=== PATIENT | female | born 1990 | race Caucasian/White ===

== ENCOUNTER 2023-07-02 07:59 | Emergency (ER) | payer OTHER, SELFPAY ==
[2023-07-02 08:07] VITALS: BP 150/91; PULSE 70; RESP 16; TEMP 36.5; O2SAT 98; BMI 27.4
--- NOTE | 2023-07-02 08:13 | XR_ITS ---
The [address] [address] Patient Name: CHRISTOPHER RUDOLPH MRN: [id number] date: 1990 Sex: F Assigned Patient Location: ER Current Patient Location: ER Accession/Order Number: [id number] Exam Date: 07/02/2023 08:20 Report Date: 07/02/2023 08:55 At the request of: FRAN ARGUELLES Procedure: XR foot RT min 3V RIGHT FOOT THREE VIEWS: 07/02/2023 8:20 AM EDT Clinical Data: Foot pain Comparison: No previous. Correlation with right ankle series same date. No acute finding at the forefoot or midfoot. Chronic irregularity talar neck may be chronic. There is irregularity of the posterior malleolus with some step-off. XR/XR foot RT min 3V IMPRESSION: 1. No acute finding at the forefoot or midfoot. 2. Irregularity of the talar neck is probably chronic. 3. Irregularity of the posterior malleolus is age-indeterminate but could be acute to subacute. Clinical correlation is needed. Electronically authenticated by: RADHIKA CASTRO Date: 07/02/2023 08:55
--- NOTE | 2023-07-02 08:13 | XR_ITS ---
The [address] [address] Patient Name: CHRISTOPHER RUDOLPH MRN: [id number] date: 1990 Sex: F Assigned Patient Location: ER Current Patient Location: ED.MAIN Accession/Order Number: [id number] Exam Date: 07/02/2023 08:20 Report Date: 07/02/2023 08:52 At the request of: FRAN ARGUELLES Procedure: XR ankle RT min 3V RIGHT ANKLE THREE VIEWS: 07/02/2023 8:20 AM EDT Clinical Data: ankle pain Comparison: No previous Longitudinal irregularity at the posterior malleolus with mild step off. Mild irregularity talar neck is most likely chronic. No dislocation. Soft tissue prominence overlying the lateral greater than medial medial malleoli. XR/XR ankle RT min 3V IMPRESSION: 1. Age-indeterminate irregularity posterior malleolus. Clinical correlation is needed. 2. Soft tissue prominence overlying the lateral greater than medial malleoli requiring clinical correlation. 3. Some irregularity of the talar neck is most likely chronic. Electronically authenticated by: RADHIKA CASTRO Date: 07/02/2023 08:52
--- NOTE | 2023-07-02 08:28 | ED_ITS ---
HPI - Extremity Injury (Lower) General Chief Complaint: Extremity Injury, Lower Stated Complaint: ANKLE PAIN Time Seen by Provider: 07/02/23 08:13 Source: patient Mode of arrival: Wheelchair Limitations: no limitations History of Present Illness HPI Narrative: 32-year-old female presents for right a couple pain. She tripped and fell this morning about 6:45 AM. She points to the entire ankle to indicate area of pain. It's moderate and worse if she steps on it. No other injury was sustained. Related Data Previous Rx's Medication Instructions Recorded hydrocodone 5 mg-acetaminophen 325 1 tab PO Q6H PRN pain #20 tabs 07/02/23 mg tablet Allergies Allergy/AdvReac Type Severity Reaction Status Date / Time amoxicillin Allergy Severe Anaphylaxis Verified 07/02/23 08:06 Cephalosporins Allergy Severe Hives Verified 07/02/23 08:06 Penicillins Allergy Severe Anaphylaxis Verified 07/02/23 08:06 Review of Systems ROS Narrative A ten point review of systems is negative except as noted above. PFSH PFSH Social History Smoking status: Heavy tobacco smoker Exam Narrative Exam Narrative: Nurses note and vital signs reviewed and patient is not hypoxic. General: The patient appears well and in no apparent distress. Patient is resting comfortably on cart with her ankle and foot on an ice pack.. Skin: Warm, dry, no pallor noted. There is no rash noted. Head: Normocephalic, atraumatic Eye: Normal conjunctiva, no drainage Ears, Nose, Mouth, and Throat: oral mucosa is moist. Nares patent. Cardiovascular: Regular Rate and Rhythm Respiratory: Patient is in no distress, no accessory muscle use Back: non-tender GI: soft and nontender Musculoskeletal: she has swelling and some mild bruising in the right ankle area. Skin intact. Some tenderness on the proximal foot as well. Neurological: A&O, normal speech Psychiatric: Cooperative Constitutional Vital Signs, click to edit/add: Last Vital Signs Temp 97.7 F 07/02/23 08:07 Pulse 70 07/02/23 08:07 Resp 16 07/02/23 08:07 BP 150/91 H 07/02/23 08:07 Pulse Ox 98 07/02/23 08:07 O2 Del Method Room Air 07/02/23 08:07 Course Vital Signs Vital signs: Vital Signs Temperature 97.7 F 07/02/23 08:07 Pulse Rate 70 07/02/23 08:07 Respiratory Rate 16 07/02/23 08:07 Blood Pressure 150/91 H 07/02/23 08:07 Pulse Oximetry 98 07/02/23 08:07 Oxygen Delivery Method Room Air 07/02/23 08:07 Temperature 97.7 F 07/02/23 08:07 Pulse Rate 70 07/02/23 08:07 Respiratory Rate 16 07/02/23 08:07 Blood Pressure 150/91 H 07/02/23 08:07 Pulse Oximetry 98 07/02/23 08:07 Oxygen Delivery Method Room Air 07/02/23 08:07 MDM - Extremity Injury (Lower) MDM Narrative Medical decision making narrative: complex intra-articular fracture identified. Case discussed with , covering Dr. Sheehan. Follow-up is arranged for tomorrow or the next day. she was offered crutches but has been home and is prescribed [place]. Treatment diagnosis and follow-up were discussed with the patient and her . Imaging Data ankle x-ray, foot x-ray, CT ankle: Radiologist's impression: Procedure: XR ankle RT min 3V RIGHT ANKLE THREE VIEWS: 07/02/2023 8:20 AM EDT Clinical Data: ankle pain Comparison: No previous Longitudinal irregularity at the posterior malleolus with mild step off. Mild irregularity talar neck is most likely chronic. No dislocation. Soft tissue prominence overlying the lateral greater than medial medial malleoli. IMPRESSION: 1. Age-indeterminate irregularity posterior malleolus. Clinical correlation is needed. 2. Soft tissue prominence overlying the lateral greater than medial malleoli requiring clinical correlation. 3. Some irregularity of the talar neck is most likely chronic. Electronically authenticated by: RADHIKA CASTRO Date: 07/02/2023 08:52 Procedure: XR foot RT min 3V RIGHT FOOT THREE VIEWS: 07/02/2023 8:20 AM EDT Clinical Data: Foot pain Comparison: No previous. Correlation with right ankle series same date. No acute finding at the forefoot or midfoot. Chronic irregularity talar neck may be chronic. There is irregularity of the posterior malleolus with some step-off. IMPRESSION: 1. No acute finding at the forefoot or midfoot. 2. Irregularity of the talar neck is probably chronic. 3. Irregularity of the posterior malleolus is age-indeterminate but could be acute to subacute. Clinical correlation is needed. Electronically authenticated by: RADHIKA CASTRO Date: 07/02/2023 08:55 Procedure: CT ankle RT wo con EXAMINATION: CT ankle RT wo con HISTORY: abn x ray COMPARISON: Film correlation same day TECHNIQUE: Multi-planar CT images were created without IV contrast. Dose reduction techniques were achieved by using automated exposure control and/or adjustment of mA and/or kV according to patient size and/or use of iterative reconstruction technique. FINDINGS: BONES: Acute complex intra-articular fracture of the posterior malleolus with the largest fracture fragment measuring 1.5 x 1 cm. 5 mm avulsion fracture identified off the lateral aspect of the distal tibia coronal image 68. Avulsion fracture identified along the medial aspect of the medial talus. No dislocation. SOFT TISSUES: Moderate diffuse soft tissue swelling. EFFUSION: Ankle joint effusion/hemarthrosis OTHER: Negative. IMPRESSION: Complex intra-articular fracture of the posterior malleolus Avulsion fracture lateral aspect of the distal tibia Avulsion fractures medial talus Electronically authenticated by: SUSANA HILL Date: 07/02/2023 10:07 Discharge Plan Discharge Chief Complaint: Extremity Injury, Lower Clinical Impression: Ankle fracture Patient Disposition: Home, Self-Care Time of Disposition Decision: 11:38 Condition: Good Mode of Transportation: Private Vehicle Prescriptions / Home Meds: New hydrocodone-acetaminophen 5-325 mg tablet 1 tab PO Q6H PRN (Reason: pain) Qty: 20 0RF Instructions: Ankle Fracture (ED), Crutch Instructions (ED) Additional Instructions: follow-up with Dr. Sheehan, call today for an appointment Stand Alone Forms: Portal Instructions Referrals: Physician,Non-Staff, MD [Primary Care Provider] - 1 week
--- NOTE | 2023-07-02 08:59 | CT_ITS ---
The [address] [address] Patient Name: CHRISTOPHER RUDOLPH MRN: [id number] date: 1990 Sex: F Assigned Patient Location: ER Current Patient Location: ER Accession/Order Number: [id number] Exam Date: 07/02/2023 09:36 Report Date: 07/02/2023 10:07 At the request of: FRAN ARGUELLES Procedure: CT ankle RT wo con EXAMINATION: CT ankle RT wo con HISTORY: abn x ray COMPARISON: Film correlation same day TECHNIQUE: Multi-planar CT images were created without IV contrast. Dose reduction techniques were achieved by using automated exposure control and/or adjustment of mA and/or kV according to patient size and/or use of iterative reconstruction technique. FINDINGS: BONES: Acute complex intra-articular fracture of the posterior malleolus with the largest fracture fragment measuring 1.5 x 1 cm. 5 mm avulsion fracture identified off the lateral aspect of the distal tibia coronal image 68. Avulsion fracture identified along the medial aspect of the medial talus. No dislocation. SOFT TISSUES: Moderate diffuse soft tissue swelling. EFFUSION: Ankle joint effusion/hemarthrosis OTHER: Negative. CT/CT ankle RT wo con IMPRESSION: Complex intra-articular fracture of the posterior malleolus Avulsion fracture lateral aspect of the distal tibia Avulsion fractures medial talus Electronically authenticated by: SUSANA HILL Date: 07/02/2023 10:07
[2023-07-02 09:10] VITALS: BP 120/80; PULSE 70; RESP 18; O2SAT 99
[2023-07-02] MEDS: KETOROLAC TROMETHAMINE 60 MG/2 ML VIAL IM (09:25)
[2023-07-02 11:56] VITALS: BP 118/78; PULSE 82; RESP 18; O2SAT 100
== END 2023-07-02 11:58 | disposition home or self-care (01) ==
PROVIDERS: Emergency Provider Emergency Medicine
DX: S92.191A Other fracture of right talus, initial encounter for closed fracture (principal); S82.301A Unspecified fracture of lower end of right tibia, initial encounter for closed fracture; S82.891A Other fracture of right lower leg, initial encounter for closed fracture; W01.0XXA Fall on same level from slipping, tripping and stumbling without subsequent striking against object, initial encounter; F17.210 Nicotine dependence, cigarettes, uncomplicated
CPT/HCPCS: 73610; 73630; 73700; 96372; 99285

== ENCOUNTER 2023-07-04 15:32 | Outpatient (OUT) | payer OTHER, SELFPAY ==
--- NOTE | 2023-07-04 14:33 | ECG_ITS ---
The [facility] Test Date: 2023-07-04 Pat Name: CHRISTOPHER RUDOLPH Department: Room: - Gender: Female Filling Operator: : 1990 Requested By: NORTH RG Order Number: [id number] Reading MD: ROSIO MIGUEL Measurements Intervals [place] Rate: 61 P: 53 PA: 135 QRS: 69 QRSD: 89 T: 9 QT: 384 QTc: 387 Interpretive Statements SINUS RHYTHM NONSPECIFIC T-WAVE ABNORMALITY No previous ECG available for comparison Electronically Signed On 07-05-2023 7:11:47 EDT by ROSIO MIGUEL
--- NOTE | 2023-07-04 15:07 | XR_ITS ---
The [address] [address] Patient Name: CHRISTOPHER RUDOLPH MRN: [id number] date: 1990 Sex: F Assigned Patient Location: [facility] Current Patient Location: [facility] Accession/Order Number: [id number] Exam Date: 07/04/2023 15:45 Report Date: 07/04/2023 16:00 At the request of: NORTH RG Procedure: XR chest 2V EXAM: XR chest 2V HISTORY: Vaping COMPARISON: None. TECHNIQUE: Upright PA and lateral chest x-ray FINDINGS: The heart is not enlarged and the vasculature is not distended. No acute infiltrate, effusion or pneumothorax is identified. The osseous structures are grossly intact. XR/XR chest 2V IMPRESSION: No acute infiltrate or evidence of cardiac decompensation. Direct comparison with a previous study would be helpful in determining the chronicity of these findings. Electronically authenticated by: NORTH GALLOWAY Date: 07/04/2023 16:00
[2023-07-04 15:47] LABS: Basophils Percent Auto 0.5 % (0.2-2.0); Eosinophils Absolute Auto 0.2 10^3/uL (0.0-0.7); Eosinophils Percent Auto 4.1 % (0.9-7.0); Hematocrit 37.5 % (36.0-48.0); Hemoglobin 12.5 g/dL (12.0-16.0); Immature Granulocytes Abs Auto 0.02 10^3/uL (0.00-0.03); Immature Granulocytes Pct Auto 0.3 % (0.0-0.5); Lymphocytes Absolute Auto 1.6 10^3/uL (1.2-3.8); Lymphocytes Percent Auto 26.7 % (20.5-60.0); Mean Corpuscular HGB Conc 33.3 g/dL (29.9-35.2); Mean Corpuscular Hemoglobin 29.4 pg (26.7-34.0); Mean Corpuscular Volume 88.2 fL (81.0-99.0); Mean Platelet Volume 9.5 fL (9.5-13.5); Monocytes Absolute Auto 0.5 10^3/uL (0.3-0.8); Monocytes Percent Auto 9.1 % (1.7-12.0); Neutrophils Absolute Auto 3.5 10^3/uL (1.4-6.5); Neutrophils Percent Auto 59.3 % (43.0-75.0); Platelet Count 207 10^3/uL (150-450); Red Blood Count 4.25 10^6/uL (4.20-5.40); Red Cell Distribution Width 13.2 % (11.0-15.0); White Blood Count 5.9 10^3/uL (4.0-11.0)
[2023-07-04 16:17] LABS: Anion Gap 9.2; BUN Creatinine Ratio 12.1; Calcium 8.9 mg/dL (8.5-10.1); Carbon Dioxide 26.9 mmol/L (21.0-32.0); Chloride 104 mmol/L (98-107); Estimated GFR (African America >60 (>=60); Estimated GFR (Non-African Ame >60 (>=60); Glucose 84 mg/dL (74-106); Potassium 4.1 mmol/L (3.5-5.1); Sodium 136 mmol/L (136-145)
== END 2023-07-04 15:33 | disposition home or self-care (01) ==
LOC: PST 15:32
PROVIDERS: Visit Provider Podiatrist Foot & Ankle Surgery
DX: Z01.810 Encounter for preprocedural cardiovascular examination (principal); Z01.812 Encounter for preprocedural laboratory examination; S82.391A Other fracture of lower end of right tibia, initial encounter for closed fracture; S93.431A Sprain of tibiofibular ligament of right ankle, initial encounter
CPT/HCPCS: 36415; 71046; 80048; 85025; 93005

== ENCOUNTER 2023-07-16 09:29 | Day surgery (SDC) | payer OTHER, SELFPAY ==
[2023-07-04 15:03] VITALS: BP 126/86; PULSE 71; RESP 20; TEMP 36.5; O2SAT 98; BMI 27.5
[2023-07-16] VITALS (29 sets, daily range): BP systolic 101–140; BP diastolic 53–91; PULSE 59–88; RESP 10–35; TEMP 36.4; O2SAT 94–100; BMI 27.5
--- NOTE | 2023-07-16 | FL_ITS ---
[address] [address] Patient Name: CHRISTOPHER RUDOLPH MRN: [id number] date: 1990 Sex: F Assigned Patient Location: [facility] Current Patient Location: [facility] Accession/Order Number: [id number] Exam Date: 07/16/2023 13:20 Report Date: 07/17/2023 09:08 At the request of: NORTH RG Procedure: FL fluoroscopy <1hr NON-READ EXAM: FL fluoroscopy <1hr NON-READ HISTORY: TECHNIQUE: FINDINGS: Please see Operative Report. Electronically authenticated by: RADIOLOGIST NO Date: 07/17/2023 09:08
[2023-07-16 09:39] LABS: Basophils Percent Auto 0.6 % (0.2-2.0); Eosinophils Absolute Auto 0.1 10^3/uL (0.0-0.7); Eosinophils Percent Auto 3.3 % (0.9-7.0); Hemoglobin 13.9 g/dL (12.0-16.0); Immature Granulocytes Abs Auto 0.01 10^3/uL (0.00-0.03); Immature Granulocytes Pct Auto 0.3 % (0.0-0.5); Lymphocytes Absolute Auto 1.2 10^3/uL (1.2-3.8); Lymphocytes Percent Auto 34.2 % (20.5-60.0); Mean Corpuscular HGB Conc 33.9 g/dL (29.9-35.2); Mean Corpuscular Hemoglobin 29.6 pg (26.7-34.0); Mean Corpuscular Volume 87.2 fL (81.0-99.0); Mean Platelet Volume 9.1 fL (9.5-13.5); Monocytes Absolute Auto 0.3 10^3/uL (0.3-0.8); Monocytes Percent Auto 7.2 % (1.7-12.0); Neutrophils Percent Auto 54.4 % (43.0-75.0); Platelet Count 241 10^3/uL (150-450); Red Cell Distribution Width 12.7 % (11.0-15.0); White Blood Count 3.6 10^3/uL (4.0-11.0)
[2023-07-16 10:06] LABS: HCG Qualitative NEGATIVE (NEGATIVE)
[2023-07-16] MEDS: LACTATED RINGER'S SOLUTION 1,000 ML 50 ML IV (10:32)
[2023-07-16 10:33] LABS: Glucometer 92 mg/dL (74-106)
[2023-07-16] MEDS: CLINDAMYCIN PHOSPHATE/D5W 900 MG/50 ML PIGGYBACK 100 MG IV (12:14)
--- NOTE | 2023-07-16 14:40 | P.ORON_ITS ---
Brief Operative Note Date of procedure: 07/16/23 Pre-op diagnosis: right posterior malleolus fracture with possible ligamentous injury Post-op diagnosis: other (right posterior malleolus fracture, closed, intra- articular and comminuted) Procedure: PROCEDURES PERFORMED: open reduction and internal fixation of posterior malleolus fracture, application of short leg splint and intraoperative stress examination under fluoroscopy, right ankle INTRAOPERATIVE FINDINGS: skin wrinkles were intact and minimal swelling noted prior to incision. Posterior malleolus fracture with intra-articular extension and comminution. Bone quality within normal limits. Syndesmosis and medial/lateral collateral ankle ligaments all intact and stable PROCEDURE IN DETAIL: Patient was identified in preoperative holding at which time correct side and site were marked and confirmed. Preoperative antibiotics were started and regional anesthesia was administered by the anesthesia team. The patient was brought to the operating suite and general anesthesia was administered. Thigh tourniquet was applied. The patient was then flipped onto the OR table in a well-padded prone position. The operative extremity was then prepped and draped in a usual sterile fashion. Formal timeout was performed and the operative extremity was exsanguinated and tourniquet inflated. A longitudinal incision was placed over the posterior lateral ankle between the tibia and fibula. Sharp and blunt dissection was performed meticulously and the sural nerve and associated venous structures were identified and carefully freed then retracted with vessel loops. Small tributaries in the direct field and blee ders were coagulated. Deeper dissection was performed and deep fascia was incised. The peroneus brevis and flexor hallucis longus muscles were identified And dissection continued deep between this muscular interval. Hematoma was evacuated and flushed with copious amounts of sterile saline. The periosteum was carefully reflected to expose the fracture lines on the fibula and posterior malleolus. All impingement tissue and hematoma was removed from the fractures. The surgical site was irrigated several times with copious saline. Then manual reduction and traction of the ankle was performed. and arthroscopic camera was placed in the tibiotalar joint to ensure all loose bodies were removed and articular fracture was reduced. The posterior malleolus fracture were temporarily fixated with K-wires. an anatomic posterior malleolus fracture plate was then temporarily pinned in place. Then screw holes were drilled under fluoroscopy to ensure extra-articular placement. locking and nonlocking screws were then placed accordingly. Temporary fixation was then removed. Under live fluoroscopy the syndesmosis was then stressed and noted to be stable. Then there is and valgus stress as well as anterior drawer were tested all were notably stable and within normal limits. Surgical site was irrigated with copious sterile saline. the incision was then closed in layers. Tourniquet was dropped after deep fascia was closed in a prompt hyperemic response was noted. Hemostasis was controlled with a temporary pressure dressing. Multiple layer closure was then performed. A dry sterile dressing consisting of Xeroform on the incisions followed by 4 x 4 gauze, ABDs, and Kerlix were applied. Multiple layers of cast padding were then applied to ensure all bony prominences were well-padded. A plaster posterior splint was then applied which was held in place by Barney wraps. Capillary refill time to all digits was evaluated and had appropriate response. POST-OPERATIVE PLAN: Discharge home under family's care Post op instructions provided verbally and written prescription(s) were placed in chart [facility] operative foot/ankle x3 wks Follow-up in 1 week Implants: Medline 3.5 mm posterior malleolus fracture plate Anesthesia: regional and General-ET Surgeon: Isaac Sheehan Volunteer Fire Fighter: Bi Jalloh Estimated blood loss (mL): 10 Pathology: none sent Condition: stable Disposition: PACU Preoperative Details Reason for procedure: patient is a healthy 32-year-old female who sustained right posterior malleolus were fracture on 07/02/23 secondary to slipping on wet grass. She went to the emergency department and x-rays and CT scan were obtained. Of note CT scan showed isolated comminuted posterior malleolus fracture. She was splinted and told to be nonweightbearing. She followed up with me the day after at which time her splint was changed and compartments were soft and compressible with no pain out of proportion. Surgery was delayed for greater than ten days to allow her skin to recover. Given the isolated fracture of the posterior malleolus there were strong suspicion for ligamentous involvement. Given the intra-articular and comminuted fracture discussed risks and benefits of surgical versus nonsurgical treatment. Patient wished to proceed with open reduction and internal fixation with ligament repairs as needed.
--- NOTE | 2023-07-16 15:14 | XR_ITS ---
The [address] [address] Patient Name: CHRISTOPHER RUDOLPH MRN: [id number] date: 1990 Sex: F Assigned Patient Location: [facility] Current Patient Location: Accession/Order Number: [id number] Exam Date: 07/16/2023 16:42 Report Date: 07/17/2023 07:27 At the request of: BARBY HUGHES Procedure: XR ankle RT min 3V PROCEDURE: XR ankle RT min 3V COMPARISON: None. HISTORY: postop xr pacu FINDINGS: BONES:Interval open reduction internal fixation of a posterior malleolus fracture with a plate and screws. Anatomic alignment is demonstrated. No dislocation. SOFT TISSUES:Postprocedural soft tissue swelling and subcutaneous emphysema EFFUSION:None visible. OTHER: Negative. XR/XR ankle RT min 3V IMPRESSION: Interval reduction and internal fixation of a posterior malleolus fracture Electronically authenticated by: SUSANA HILL Date: 07/17/2023 07:27
[2023-07-16] MEDS: HYDROMORPHONE HCL 0.5 MG/0.5 ML SYRINGE IV ×2 (15:49→15:59)
[2023-07-16 15:51] LABS: Glucometer 119 mg/dL (74-106)
[2023-07-16] MEDS: OXYCODONE HCL/ACETAMINOPHEN 5MG/325MG 1 TAB PO (16:44)
--- NOTE | 2023-07-16 17:15 | PC.NURSE ---
1620 07/16/23 Patient was placed in a prone position after Dr. Leo reviewed the procedure of the nerve block. Patient was being monitored in the PACU Phase One at this time with a one on one nurse (proposal manager writer). Patient was given a local at the site and then the bedside ultrasound was used to locate area by the Dr. The nerve stimulator was placed and used and performed block without incidence. Patient was returned to supine position post block. She tolerated it well. Vitals remained within normal limits throughout. Block took 10 minutes in length to complete.
== END 2023-07-16 18:00 | disposition home or self-care (01) ==
LOC: SURGOUT 09:30
PROVIDERS: Family Provider Anesthesiology; Visit Provider Podiatrist Foot & Ankle Surgery
PROC: (CPT 27769; principal; 2023-07-16 10:40)
DX: S82.391A Other fracture of lower end of right tibia, initial encounter for closed fracture (principal); S93.431A Sprain of tibiofibular ligament of right ankle, initial encounter; F17.290 Nicotine dependence, other tobacco product, uncomplicated; W18.39XA Other fall on same level, initial encounter; S93.421A Sprain of deltoid ligament of right ankle, initial encounter; S93.491A Sprain of other ligament of right ankle, initial encounter
CPT/HCPCS: 27769; 36415; 64445; 73610; 76000; 76942; 82948; 84703; 85025; C1713; J1170; J2704

== ENCOUNTER 2023-08-09 11:32 | Outpatient (OUT) | payer OTHER, SELFPAY ==
--- NOTE | 2023-08-09 | XR_ITS ---
The [address] [address] Patient Name: CHRISTOPHER RUDOLPH MRN: [id number] date: 1990 Sex: F Assigned Patient Location: [facility] Current Patient Location: Accession/Order Number: [id number] Exam Date: 08/09/2023 11:25 Report Date: 08/10/2023 09:37 At the request of: NORTH RG Procedure: XR ankle RT min 3V EXAM: XR ankle RT min 3V HISTORY: PSOT OP VISIT RIGTH ANKLE SX COMPARISON: 07/16/2023. TECHNIQUE: Routine views of the XR ankle RT min 3V FINDINGS/ XR/XR ankle RT min 3V IMPRESSION: 1. Plate and screw fixation of the posterior malleolus. Alignment is anatomic without evidence for hardware complication. Minimal residual vertically oriented fracture lucency is noted. No new fractures identified. 2. Unremarkable soft tissues. 3. Normal joint spacing. Electronically authenticated by: FRANCISCO DUNN Date: 08/10/2023 09:37
== END 2023-08-09 11:33 | disposition home or self-care (01) ==
LOC: RAD 11:32
PROVIDERS: Visit Provider Podiatrist Foot & Ankle Surgery
DX: S93.491A Sprain of other ligament of right ankle, initial encounter (principal)
CPT/HCPCS: 73610

== ENCOUNTER 2023-08-30 11:00 | Outpatient (OUT) | payer OTHER, SELFPAY ==
--- NOTE | 2023-08-30 11:16 | XR_ITS ---
The [address] [address] Patient Name: CHRISTOPHER RUDOLPH MRN: [id number] date: 1990 Sex: F Assigned Patient Location: [facility] Current Patient Location: [facility] Accession/Order Number: [id number] Exam Date: 08/30/2023 11:07 Report Date: 08/30/2023 22:14 At the request of: GERALD MELENDREZ Procedure: XR ankle RT min 3V EXAM: XR ankle RT min 3V HISTORY: RIGHT ANKLE PAIN COMPARISON: Right ankle radiographs 08/09/2023 TECHNIQUE: 3 views right ankle FINDINGS: Open reduction and internal fixation of the distal tibia without hardware complication. A fracture lucency persists. Tibiotalar joint is congruent without large osteochondral defect. No joint effusion. XR/XR ankle RT min 3V IMPRESSION: Status post open reduction internal fixation of the distal tibia without hardware complication. Electronically authenticated by: RIGO AGUILAR Date: 08/30/2023 22:14
== END 2023-08-30 11:01 | disposition home or self-care (01) ==
LOC: RAD 11:00
PROVIDERS: Visit Provider Physician Assistant
DX: S82.391A Other fracture of lower end of right tibia, initial encounter for closed fracture (principal)
CPT/HCPCS: 73610

== ENCOUNTER 2023-09-18 15:03 | Outpatient (OUT) | payer OTHER, SELFPAY ==
--- NOTE | 2023-09-18 | XR_ITS ---
The [address] [address] Patient Name: CHRISTOPHER RUDOLPH MRN: [id number] date: 1990 Sex: F Assigned Patient Location: [facility] Current Patient Location: Accession/Order Number: [id number] Exam Date: 09/18/2023 15:14 Report Date: 09/19/2023 07:23 At the request of: NORTH RG Procedure: XR ankle RT min 3V PROCEDURE: XR ankle RT min 3V COMPARISON: 08/30/2023 HISTORY: RIGHT ANKLE PAIN FINDINGS: BONES:Again demonstrated is internal fixation of the posterior malleolus fracture with a posterior plate and screws. The most cranial of the screws extends beyond the anterior tibial cortical margin, unchanged. No mechanical failure. No new fracture or dislocation. SOFT TISSUES:Negative. No visible soft tissue swelling. EFFUSION:None visible. OTHER: Negative. XR/XR ankle RT min 3V IMPRESSION: Interval internal fixation posterior malleolus with no mechanical failure Electronically authenticated by: SUSANA HILL Date: 09/19/2023 07:23
== END 2023-09-18 15:04 | disposition home or self-care (01) ==
LOC: RAD 15:03
PROVIDERS: Visit Provider Podiatrist Foot & Ankle Surgery
DX: S82.391A Other fracture of lower end of right tibia, initial encounter for closed fracture (principal)
CPT/HCPCS: 73610

== ENCOUNTER 2023-10-26 09:54 | Outpatient (OUT) | payer OTHER, SELFPAY ==
--- NOTE | 2023-10-26 | XR_ITS ---
The [address] [address] Patient Name: CHRISTOPHER RUDOLPH MRN: [id number] date: 1990 Sex: F Assigned Patient Location: [facility] Current Patient Location: [facility] Accession/Order Number: [id number] Exam Date: 10/26/2023 10:03 Report Date: 10/26/2023 11:43 At the request of: NORTH RG Procedure: XR ankle RT min 3V PROCEDURE: XR ankle RT min 3V COMPARISON: 09/18/2023 HISTORY: RIGTH ANKLE F/U IMAGING FINDINGS: BONES:Stable reduction internal fixation of a posterior malleolus fracture with a plate and screws. No acute fracture, dislocation or mechanical failure. Interval development of permeative pattern of the bones SOFT TISSUES:Negative. No visible soft tissue swelling. EFFUSION:None visible. OTHER: Negative. XR/XR ankle RT min 3V IMPRESSION: Stable open reduction internal fixation of the posterior malleolus fracture Interval development of osteopenia Electronically authenticated by: SUSANA HILL Date: 10/26/2023 11:43
--- OUTSIDE RECORDS SUMMARY | 2023-10-26 09:57 | XMS_ITS | CCD ---
Author Name Unknown Address [address] [place] [address] Organization [facility] Care Team Providers Care Tie Maker Name Role Phone ADITYA, DR OCHOA Admitting Unavailable ADIYTA, DR OCHOA Attending Unavailable [facility] Primary Care Unavailable ADITYA, DR OCHOA Consulting Unavailable ADITYA, DR OCHOA Admitting Unavailable ADITYA, DR OCHOA Attending Unavailable [facility] Primary Care Unavailable LA LAWRENCE Consulting Unavailable ADITYA, DR OCHOA Admitting Unavailable ADITYA, DR OCHOA Attending Unavailable [facility] Primary Care Unavailable ADITYA, DR OCHOA Consulting Unavailable LISA VALLES Consulting Unavailable IBIS PRICE Consulting Unava ilable ADITYA, DR OCHOA Admitting Unavailable ADITYA, DR OCHOA Attending Unavailable AYAN, BETTYE R Primary Care Unavailable ADITYA, DR OCHOA Admitting Unavailable ADITYA, DR OCHOA Attending Unavailable AYAN, BETTYE R Primary Care Unavailable ADITYA, DR OCHOA Consulting Unavailable ADITYA, DR OCHOA Admitting Unavailable ADITYA, DR OCHOA Attending Un[facility]available ADITYA, DR OCHOA Consulting Unavailable ADITYA, DR OCHOA Admitting Unavailable ADITYA, DR OCHOA Attending Unavailable [facility]available SERGIO, DR SUSANA Xie Consulting Unavailable ADITYA, DR OCHOA Consulting Unavailable Gini Fernandez Unavailable NORTH RG Referring Unavailable ELIAS SHEFFIELD Primary Care Unavailable NOR[facility] RG Referring Unavailable ELIAS SHEFFIELD Primary Care Unavailable Allergies Allergy Classification Reported Allergen(s) Allergy Type Date of Onset Reaction(s) Facility (3 sources) Penicillins; Translations: [PENICILLINS] Drug allergy (disorder) 10-15-18 92 [facility] Repository (2 sources) Amoxicillin Drug Allergy anaphylaxis [facility] Other (2 sources) Penicillin V Drug Allergy anaphylaxis [facility] Other (1 source) Cephalosporins (Antibiotic); Translations: [CEPHALOSPORINS] Propensity to adverse reactions to drug (disorder) 12-10-19 [facility] Repository Medications Current Medications Medication Drug Class(es) Dates Sig (Normalized) Sig (Original) [id number] 200 actuat albuterol 0.09 mg/actuat metered dose inhaler (3 sources) beta2-Adrenergic Agonist Start: 12-20-2022 take 2 puff(s) by inhalation four times daily as needed Albuterol Sulfate HFA 108 (90 Base) MCG/ACT 2 puffs Inhalation qid prn Dec, Active benzonatate 200 mg oral capsule (3 sources) Non-narcotic Antitussive Start: 01-03-2023 take 1 capsule by mouth every eight hours Benzonatate 200 MG 1 capsule Orally Three times a day Dec, Active Start: 12-20-2022 take 1 capsule by mo ut every eight hours Tessalon Perles 100 MG 1 capsule as needed Orally Three times a day for 10 day(s) Dec, Not-Taking doxycycline hyclate 100 mg oral capsule (1 source) Tetracycline-class Drug Start: 01-03-2023 take 1 capsule by mouth every twelve hours Doxycycline Hyclate 100 MG 1 capsule Orally Twice a day for 10 Dec, Active predniSONE 20 mg oral tablet (3 sources) Start: 12-20-2022 take 1 tablet by mouth every twelve hours predniSONE 20 MG 1 tablet Orally bid for 5 day(s) Dec, Active Completed/Discontinued Medications Medication Drug Class(es) Dates Sig (Normalized) Sig (Original) azithromycin 250 mg oral tablet (2 sources) Macrolide Antimicrobial Start: 12-20-2022 Azithromycin 250 MG 2 tablet on the first day, then 1 tablet daily for 4 days Orally Once a day for 5 day(s) Dec, Not-Taking triamcinolone acetonide 40 mg/ml injectable suspension (1 source) Corticosteroid Start: 01-03-2023 Kenalog-40 Dec, 40 mg Problems Active Problems Problem Classification Problem Date Documented Da te Episodic/Chronic Chronic obstructive pulmonary disease and bronchiectasis (2 sources) Bronchitis, not specified as acute or chronic Episodic Contraceptive and procreative management (5 sources) Encounter for sterilization; Translations: [ENCOUNTER FOR STERILIZATION] Onset: 08-13-2022 Episodic Headache; including migraine (2 sources) Refractory migraine with aura; Translations: [Migraine with aura, intractable, with status migrainosus] Chronic Menstrual disorders (6 sources) Excessive and frequent menstruation with regular cycle; Translations: [Irregular menstruation, unspecified] Onset: 07-17-2022 Chronic Other female genital disorders (1 source) Other specified conditions associated with female genital organs and menstrual cycle; Translations: [OTH SPEC COND FE GEN ORG MENST CYCL] Onset: 08-28-2022 Episodic Other gastrointestinal disorders (2 sources) Diarrhea; Translations: [Diarrhea] Episodic Other gastrointestinal disorders (2 sources) Constipation; Translations: [Constipation] Episodic Other upper respiratory disease (2 sources) Hypertrophy of nasal turbinates; Translations: [Hypertrophy of nasal turbinates] Episodic Other upper respiratory infections (3 sources) Acute sinusitis; Translations: [Sinusitis acute] Episodic Sprains and strains (2 sources) Sprain of wrist; Translations: [Wrist strain] Episodic Superficial injury; contusion (2 sources) Contusion of hand; Translations: [Contusion, hand] Episodic Unclassified (1 source) CONTACT W/AND (SUSP) EXPOS COVID-19; Translations: [CONTACT W/AND (SUSP) EXPOS COVID-19] Onset: 08-18-2022 Past or Other Problems Problem Classification Problem Date Documented Date Episodic/Chronic Immunizations and screening for infectious disease (1 source) Encounter for screening for human papillomavirus (HPV); Translations: [ENC SCREENING HUMAN PAPILLOMAVIRUS] Onset: 06-08-2022 Episodic Other screening for suspected conditions (not mental disorders or infectious disease) (4 sources) Encounter for screening for malignant neoplasm of cervix; Translations: [ENC SCREENING MALIG NEOPLASM CERV] Onset: 06-06-2022 Episodic Results Test Name Value Interpretation Reference Range Facility [facility] 12-20-2022 S. pyogenes Org specific cx Ql (Throat) Negative [facility] Other [facility] Other CBC AUTO DIFFon 08-18-2022 BASO # 0.0 103/ul Normal 0.0-0.1 [facility] Comment on above: Performed By: #### C BC #### [facility] [address] [place] [address] Dr. Mary Alice Maxwell Basophils/100 WBC (Bld) 0.3 % Normal 0.2-2.0 [facility] Comment on above: Performed By: #### C BC #### [facility] [address] [address] [address] Mary Alice Maxwell EO # 0.1 103/ul Normal 0.0-0.7 [facility] Comment on above: Performed By: #### C BC #### [facility] [address] [place] [address] Dr. Mary Alice Maxwell Eosinophils/100 WBC (Bld) 1.3 % Normal 0.9-7.0 [facility] Comment on above: Performed By: #### C BC #### [facility] [address] [place] [address] Dr. Mary Alice Maxwell Erythrocyte distribution width (RBC) [Ratio] 12.9 % Normal 11.0-15.0 [facility] Comment on above: Performed By: #### C BC #### [facility] [address] [place] [address] Dr. Mary Alice Maxwell Hematocrit (Bld) [Volume fraction] 41.6 % Normal 36.0-48.0 [facility] Comment on above: Performed By: #### C BC #### [facility] [address] [place] [address] Dr. Mary Alice Maxwell Hemoglobin (Bld) [Mass/Vol] 13.8 g/dL Normal 12.0-16.0 [facility] Comment on above: Performed By: #### C BC #### [facility] [address] [place] [address] Dr. Mary Alice Maxwell IG # 0.01 10e3/ul Normal 0.00-0.03 [facility] Comment on above: Performed By: #### C BC #### [facility] [address] [place] [address] Dr. Mary Alice Maxwell IG % 0.3 % Normal 0.0-0.5 [facility] Comment on above: Performed By: #### C BC #### [facility] [address] [place] [address] Dr. Mary Alice Maxwell LYMPH # 1.2 103/ul Normal 1.2-3.8 [facility] Comment on above: Performed By: #### C BC #### [facility] [address] [place] [address] Dr. Mary Alice Maxwell Lymphocytes/100 WBC (Bld) 29.3 % Normal 20.5-60.0 [facility] Comment on above: Performed By: #### C BC #### [facility] [address] [place] [address] Dr. Mary Alice Maxwell MANUAL DIFF REQ NO Normal [facility] Comment on above: Performed By: #### C BC #### [facility] [address] [place] [address] Dr. Mary Alice Maxwell MCH (RBC) [Entitic mass] 28.5 pg Normal 26.7-34.0 [facility] Comment on above: Performed By: #### C BC #### [facility] [address] [place] [address] Dr. Mary Alice Maxwell MCHC (RBC) [Mass/Vol] 33.2 g/dL Normal 29.9-35.2 [facility] Comment on above: Performed By: #### C BC #### [facility] [address] [place] [address] Dr. Mary Alice Maxwell MCV (RBC) [Entitic vol] 85.8 fL Normal 81.0-99.0 [facility] Comment on above: Performed By: #### C BC #### [facility] [address] [place] [address] Dr. Mary Alice Maxwell MONO # 0.3 103/ul Normal 0.3-0.8 [facility] Comment on above: Performed By: #### C BC #### [facility] [address] [place] [address] Dr. Mary Alice Maxwell Monocytes/100 WBC (Bld) 8.0 % Normal 1.7-12.0 [facility] Comment on above: Performed By: #### C BC #### [facility] [address] [place] [address] Dr. Mary Alice Maxwell NEUT # 2.4 103/ul Normal 1.4-6.5 [facility] Comment on above: Performed By: #### C BC #### [facility] [address] [place] [address] Dr. Mary Alice Maxwell Neutrophils/100 WBC (Bld) 60.8 % Normal 43.0-75.0 [facility] Comment on above: Performed By: #### C BC #### [facility] [address] [place] [address] Dr. Mary Alice Maxwell Platelet mean volume (Bld) [Entitic vol] 9.0 fL Critically low 9.5-13.5 [facility] Comment on above: Performed By: #### C BC #### [facility] [address] [place] [address] Dr. Mary Alice Maxwell PLT 227 103/ul Normal 150-450 [facility] Comment on above: Performed By: #### C BC #### [facility] [address] [place] [address] Dr. Mary Alice Maxwell RBC 4.85 106/ul Normal 4.20-5.40 [facility] Comment on above: Performed By: #### C BC #### [facility] [address] [place] [address] Dr. Mary Alice Maxwell WBC 4.0 103/ul Normal 4.0-11.0 [facility] Comment on above: Performed By: #### C BC #### [facility] [address] [place] [address] Dr. Mary Alice Maxwell PREG HCG QUALon 08-18-2022 , QUAL Negative Normal NEGATIVE [facility] Comment on above: Performed By: #### P REG #### [facility] [address] [place] [address] Dr. Mary Alice Maxwell Covid-19 PCR (CVDTBH)on SARS-CoV-2 (COVID-19) RNA MARY+probe Ql (Unsp spec) Not detected Normal NOT DETECTED [facility] Comment on above: Result Comment: This test is not yet approved or cleared by the [place] FDA. When there are no FDA-approved or cleared tests available, and other criteria are met, FDA can make tests available under an emergency access mechanism called an Emergency Use Authorization (EUA). The EUA for this test is supported by the [employer] of Health and Human Service's (HHS's) declaration that circumstances exist to justify the emergency use of in vitro diagnostics for the detection and/or diagnosis of the virus that causes COVID-19. This EUA will remain in effect (meaning this test can be used) for the duration of the COVID-19 declaration justifying emergency of IVDs, unless it is terminated or revoked by FDA (after which the test may no longer be used). When diagnostic testing is negative, the possibility of a false negative should be considered in the context of a patient's recent exposures and the presence of clinical signs and symptoms consistent with SARS-CoV-2. Performed By: #### [facility] #### [facility] [address] [place] [address] Dr. Mary Alice Maxwell US PELVIS AND TRANSVAGon US PELVIS AND TRANSVAG EXAMINATION: US PELVIS AND TRANSVAG HISTORY: Irregular periods COMPARISON: No relevant comparison available. FINDINGS: Transabdominal and transvaginal images The uterus is normal in size, contour and myometrial echotexture measuring 8.6 x 4.0 x 5.1 cm. Anteverted. No focal myometrial mass. The endometrium measures 4.7 mm, normal. The right ovary is normal in appearance measuring 2.5 x 2.5 1.5 cm. Normal color Doppler flow. The left ovary measures 1.5 x 2.1 x 1.4 cm. Normal color flow. No free fluid IMPRESSION: No acute abnormality Electronically authenticated by: SUSANA HILL Date: 2022-07-17 16:10 Normal [facility] CBC AUTO DIFFon 07-15-2022 BASO # 0.0 103/ul Normal 0.0-0.1 [facility] Comment on above: Performed By: #### C BC ####[facility] [address] [id number]. Mary Alice Maxwell Basophils/100 WBC (Bld) 0.2 % Normal 0.2-2.0 [facility] Comment on above: Performed By: #### C BC ####[facility] [address] [place], [place] [address]Dr. Mary Alice Maxwell EO # 0.0 103/ul Normal 0.0-0.7 [facility] Comment on above: Performed By: #### C BC ####[facility] [address] [place], [place] [address]Dr. Mary Alice Maxwell Eosinophils/100 WBC (Bld) 0.4 % Critically low 0.9-7.0 [facility] Comment on above: Performed By: #### C BC ####[facility] [address] [place], [place] [address]Dr. Mary Alice Maxwell Erythrocyte distribution width (RBC) [Ratio] 12.5 % Normal 11.0-15.0 [facility] Comment on above: Performed By: #### C BC ####[facility] [address] [place], [place] [address]Dr. Mary Alice Maxwell Hematocrit (Bld) [Volume fraction] 38.0 % Normal 36.0-48.0 [facility] Comment on above: Performed By: #### C BC ####[facility] [address] [place], [place] [address]Dr. Mary Alice Maxwell Hemoglobin (Bld) [Mass/Vol] 12.5 g/dL Normal 12.0-16.0 [facility] Comment on above: Performed By: #### C BC ####[facility] [address] [place], [place] [address]Dr. Mary Alice Maxwell IG # 0.01 10e3/ul Normal 0.00-0.03 [facility] Comment on above: Performed By: #### C BC ####[facility] [address] [place], [place] [address]Dr. Mary Alice Maxwell IG % 0.2 % Normal 0.0-0.5 [facility] Comment on above: Performed By: #### C BC ####[facility] [address] [id number]. Mary Alice Maxwell LYMPH # 1.2 103/ul Normal 1.2-3.8 [facility] Comment on above: Performed By: #### C BC ####[facility] [address] [id number]. Mary Alice Maxwell Lymphocytes/100 WBC (Bld) 23.9 % Normal 20.5-60.0 [facility] Comment on above: Performed By: #### C BC ####[facility] [address] [address]Dr. Mary Alice Maxwell MANUAL DIFF REQ NO Normal [facility] Comment on above: Performed By: #### C BC ####[facility] [address] [address]Dr. Mary Alice Maxwell MCH (RBC) [Entitic mass] 28.8 pg Normal 26.7-34.0 [facility] Comment on above: Performed By: #### C BC ####[facility] [address] [id number]. Mary Alice Maxwell MCHC (RBC) [Mass/Vol] 32.9 g/dL Normal 29.9-35.2 [facility] Comment on above: Performed By: #### C BC ####[facility] [address] [id number]. Mary Alice Maxwell MCV (RBC) [Entitic vol] 87.6 fL Normal 81.0-99.0 [facility] Comment on above: Performed By: #### C BC ####[facility] [address] [id number]. Mary Alice Maxwell MONO # 0.3 103/ul Normal 0.3-0.8 [facility] Comment on above: Performed By: #### C BC ####[facility] [address] [id number]. Mary Alice Maxwell Monocytes/100 WBC (Bld) 7.0 % Normal 1.7-12.0 [facility] Comment on above: Performed By: #### C BC ####[facility] [address] [id number]. Jackiesanchez Hans NEUT # 3.3 103/ul Normal 1.4-6.5 [facility] Comment on above: Performed By: #### C BC ####[facility] [address] [id number]. Mary Alice Maxwell Neutrophils/100 WBC (Bld) 68.3 % Normal 43.0-75.0 [facility] Comment on above: Performed By: #### C BC ####[facility] [address] [id number] Maxwell Platelet mean volume (Bld) [Entitic vol] 9.5 fL Normal 9.5-13.5 [facility] Comment on above: Performed By: #### C BC ####[facility] [address] [address]Dr. Mary Alice Maxwell PLT 227 103/ul Normal 150-450 [facility] Comment on above: Performed By: #### C BC ####[facility] [address] [id number] Maxwell RBC 4.34 106/ul Normal 4.20-5.40 [facility] Comment on above: Performed By: #### C BC ####[facility] [address] [id number] Maxwell WBC 4.9 103/ul Normal 4.0-11.0 [facility] Comment on above: Performed By: #### C BC ####[facility] [address] [id number] Maxwell PREG QUANT HCGon 07-15-2022 HCG QUANT 1 mIU/mL Normal [facility] Comment on above: Performed By: #### T SH, PREGQNT #### [facility] [address] [place], [place] [address] Dr. Mary Alice Maxwell HCG RANGE SEE BELOW Normal [facility] Comment on above: Result Comment: 5-50 0.2-1 WEEK 50-500 1-2 WEEKS 100-5,000 2-3 WEEKS 500-10,000 3-4 WEEKS 1,000-50,000 4-5 WEEKS 10,000-100,000 5-6 WEEKS 15,000-200,000 6-8 WEEKS 10,000-100,000 2-3 MONTHS Performed By: #### T SH, PREGQNT #### [facility] [address] [place] [address] Dr. Mary Alice Maxwell PROTIMEon 07-15-2022 INR Coag (PPP) [Relative time] 0.94 {INR} Normal [facility] Comment on above: Performed By: #### P TT, PT #### [facility] [address] [place] [address] Dr. Mary Alice Maxwell INR GUIDELINES SEE BELOW Normal [facility] Comment on above: Result Comment: NICKOLAS RED INR: 2.0 - 3.0 CONDITIONS NOT LISTED BELOW 2.5 - 3.5 FOR PROSTHETIC HEART VALVE REPLACEMENT 2.5 - 3.5 RECURRENT THROMBOSIS Performed By: #### P TT, PT #### [facility] [address] [place] [address] Dr. Mary Alice Maxwell PT Coag (PPP) [Time] 10.2 s Normal 9.0-11.6 [facility] Comment on above: Performed By: #### P TT, PT #### [facility] [address] [place] [address] Dr. Mary Alice Maxwell PTTon 07-15-2022 aPTT Coag (Bld) [Time] 29.0 s Normal 22.3-36.2 [facility] Comment on above: Performed By: #### P TT, PT #### [facility] [address] [place] [address] Dr. Mary Alice Maxwell TSHon 07-15-2022 TSH 0.751 uIU/mL Normal 0.358-3.740 [facility] Comment on above: Performed By: #### T SH, PREGQNT #### [facility] [address] [place] [address] Dr. Mary Alice Maxwell PAP ACOG PANEL 2: 30 to 65on 06-12-2022 . . Normal [facility] Comment on above: Result Comment: Perf ormed at: WB Performed By: #### [id number] #### [facility] [address] [address] [address] Mary Alice Maxwell Age Gdln ACOG Testing 30-65 [facility] Comment on above: Performed By: #### [id number] #### [facility] [address] [address] [address] Mary Alice Maxwell DIAGNOSIS: Comment Normal [facility] Comment on above: Result Comment: NEGA TIVE FOR INTRAEPITHELIAL LESION OR MALIGNANCY. Performed at: WB Performed By: #### [id number] #### [facility] [address] [place] [address] Dr. Mary Alice Maxwell HPV Aptima Negative Normal Negative [facility] Comment on above: Result Comment: This nucleic acid amplification test detects fourteen high-risk HPV types (16,18,31,33,35,39,45,51,52,56,58,59,66,68) without differentiation. Performed at: =G Performed By: #### [id number] #### [facility] [address] [place] [address] Dr. Mary Alice Maxwell Methodology: Comment [facility] Comment on above: Result Comment: This liquid based ThinPrep(R) pap test was screened with the use of an image guided system. Performed at: WB Performed By: #### [id number] #### [facility] [address] [place] [address] Dr. Mary Alice Maxwell Note: Comment [facility] Comment on above: Result Comment: The Pap smear is a screening test designed to aid in the detection of premalignant and malignant conditions of the uterine cervix. It is not a diagnostic procedure and should not be used as the sole means of detecting cervical cancer. Both false-positive and false-negative reports do occur. . Performed at: WB Performed By: #### [id number] #### [facility] [address] [place] [address] Dr. Mary Alice Maxwell Performed by: Comment [facility] Comment on above: Result Comment: Valerio Washington Mailer (ASCP) Performed at: WB Performed By: #### [id number] #### [facility] [address] [place], [place] [address] Dr. Mary Alice Maxwell Specimen adequacy: Comment Normal [facility] Comment on above: Result Comment: Sati sfactory for evaluation. Endocervical and/or squamous metaplastic cells (endocervical component) are present. Performed at: WB Performed By: #### [id number] #### [facility] [facility] [address] [address] [address] Mary Alice Maxwell Vital Signs Date Time Vital Sign Value Performing Clinician Facility 01-03-2023 10:25-0400 Body height 157.48 cm Ginileesa Fernandez Other [facility] Other 01-03-2023 10:25-0400 Body mass index (BMI) [Ratio] 30.21 kg/m2 Gini Crooksmond Other [facility] Other 01-03-2023 10:25-0400 Body temperature 98.2 [degF] Gini Fernandez Other [facility] Other 01-03-2023 10:25-0400 Body weight 74.93 kg Gini Fernandez Other [facility] Other 01-03-2023 10:25-0400 Respiratory rate 18 /min Gini Crooksmond Other [facility] Other 01-03-2023 10:25-0400 SaO2% (BldA) [Mass fraction] 99 % Gini Rebecca Other [facility] Other 12-20-2022 09:00-0500 Body height 157.48 cm Gini Crooksmond Other [facility] Other 12-20-2022 09:00-0500 Body mass index (BMI) [Ratio] 27.43 kg/m2 Gini Fernandez Other [facility] Other 12-20-2022 09:00-0500 Body temperature 97.2 [degF] Gini Fernandez Other [facility] Other 12-20-2022 09:00-0500 Body weight 68.04 kg Gini Fernandez Other [facility] Other 12-20-2022 09:00-0500 Respiratory rate 18 /min Gini Fernandez Other [facility] Other 12-20-2022 09:00-0500 SaO2% (BldA) [Mass fraction] 98 % Gini Fernandez Other [facility] Other Encounters Encounter Date Encounter Type Care Provider Facility Start: 10-16-2023 ambulatory [facility] Start: 09-24-2023 End: 10-15-2023 ambulatory [facility] Start: 01-03-2023 End: 01-03-2023 ambulatory Gini Crooksmond Other [facility] Other Start: 01-03-2023 Office outpatient vi sit 15 minutes Ginileesa Fernandez [facility] Start: 12-20-2022 End: 12-20-2022 ambulatory Gini Rebecca Other [facility] Other Start: 12-20-2022 Office outpatient vi sit 15 minutes Ginileesa Fernandez [facility] Start: 08-18-2022 Encounter for preprocedural laboratory examination DR GABRIELA PHILLIPS [facility] Start: 08-18-2022 End: 08-18-[address] GABRIELA PHILLIPS Facility:[facility] Start: 08-15-2022 End: 08-16-[address] GABRIELA PHILLIPS Facility:[facility] Start: 08-15-2022 End: 08-16-2022 Encounter for preprocedural laboratory examination DR GABRIELA PHILLIPS Facility:[facility] Start: 08-13-2022 Encounter for other preprocedural examination DR GABRIELA PHILLIPS [facility] Start: 08-09-2022 End: 08-10-[address] GABRIELA PHILLIPS Facility:[facility] Start: 08-09-2022 End: 08-10-2022 Encounter for other preprocedural examination DR GABRIELA PHILLIPS Facility:[facility] Start: 07-17-2022 End: 07-18-[address] GABRIELA PHILLIPS Facility:[facility] Start: 07-15-2022 End: 07-16-[address] GABRIELA PHILLIPS Facility:[facility] Start: 06-07-[address] GABRIELA PHILLIPS Facility :[facility] Start: 06-06-2022 End: 06-06-[address] GABRIELA PHILLIPS Facility:[facility] Immunizations Immunization Date Immunization Notes Care Provider Fa [facility] 2014 influenza, seasonal, injectable, preservative free Gini Rebecca Other [facility] Other 2014 tetanus toxoid, reduced diphtheria toxoid, and acellular pertussis vaccine, adsorbed Gini Rebecca Other [facility] Other 11-18-2012 human papilloma viru s vaccine, quadrivalent Gini Rebecca Other [facility] Other Payers Date Payer Category Payer Unknown [id number] 1991 Unknown [id number] 1991 Unknown [id number] 1991 Unknown [id number] 1991 Unknown [id number] 1991 Unknown [id number] 1991 Unknown [id number] 1991 Unknown [id number] 1991 Unknown [id number] 1959 [employer] of [employer] [id number] 1959 Self-pay [id number] 1958 Unknown [id number] [employer] ([employer]) [id number] 19 Social History Date Type Detail Facility Sex Assigned At [facility] Other Evaluation note 01-03-2023 Note Date & Type Note Facility 01-03-2023 Evaluation note Encounter Date Diagnosis Assessment Notes Dec, Bronchitis (ICD-10 - J40) Acute bronchitis material was printed Drink plenty fluids, get plenty of rest. Take the doxycycline and prednisone as prescribed until gone. Use the albuterol inhaler as prescribed as needed for cough or shortness of breath. Use the Tessalon Perles as needed for cough. Follow-up with your family physician if no improvement in 2 to 3 days. May return to work on Sunday. [facility] Other Evaluation note 12-20-2022 Note Date & Type Note Facility 12-20-2022 Evaluation note Encounter Date Diagnosis Assessment Notes Dec, Sore throat (ICD-10 - J02.9) Dec, Bronchitis (ICD-10 - J40) Acute bronchitis material was printed Drink plenty fluids, get plenty of rest. Take the azithromycin and prednisone as prescribed until gone. Use the albuterol inhaler as prescribed as needed for cough or shortness of breath. Use the Tessalon Perles as prescribed as needed for cough. Take Tylenol or Motrin as needed for aches pains or fevers. Follow-up with your family physician if no improvement in 2 to 3 days. [facility] Other Clinical Note 08-18-2022 Note Date & Type Note Facility 08-18-2022 Note OPERATIVE NOTE OPERATION DATE: 08/18/2022 PROCEDURE: Karlie endometrial ablation and bilateral laparoscopic salpingectomy. PREOPERATIVE DIAGNOSIS: Menorrhagia, desires permanent sterilization, multiparity. POSTOPERATIVE DIAGNOSIS: Menorrhagia, desires permanent sterilization, multiparity, pelvic vascular congestion syndrome. ANESTHESIA: General. SURGEON: Gabriela Phillips D.O. NIGHT MONITOR: SEB Porras URINE OUTPUT: Yellow and clear. BLOOD LOSS: 5 mL. FINDINGS: Normal appearing ovaries, uterus and tubes; however, pelvic vascular congestion syndrome could be noted. PROCEDURE: The patient was taken back to the OR where she was prepped and draped in the normal sterile fashion after being placed in the dorsal lithotomy position, after being placed under general anesthesia without difficulty. a weighted speculum was then placed into the vagina. The anterior lip was grasped with a single tooth tenaculum. The patient was then sounded to approximately 9 cm. The patient was gently sounded using Hegar dilators and the hysteroscope was passed through the cervix into the uterus where both ostia were seen. No gross evidence of polyps, fibroids or malignancy. The cervical length was noted to be 4 cm. The Karlie ablation apparatus was set to approximately 5 cm in length. This was placed in through the cervix and into the uterus. After the seal was tested, at that time the total ablation of 120 seconds was performed with the Karlie without difficulty. All instruments were removed from the vagina. A wet sponge stick was placed into the patient's vagina. Attention was then turned to the patient's abdomen, where a scalpel was used to make a small infraumbilical incision. The S retractors were then used to dissect the underlying layers until the fascia could be seen. The fascia was then grasped with Nita clamps and tented up. A knife was then used to make a small incision to the fascia. The muscle was identified, at that time two sutures of #0 Vicryl on a GI needle was then used and placed through the fascia. The peritoneum was then identified and entered bluntly. The 10-4 Nancy was then placed into the patient's abdomen. This was confirmed with direct visualization of the bowel, using the laparoscope. The patient's abdomen was then insufflated using approximately 4 liters of CO2 gas. Survey of the patient's abdomen demonstrated normal appearing ovaries, uterus and tubes. A second and third lateral ports, which was 7-8 in size and 5 mm in size, was then placed laterally after incision was made in the skin under direct visualization. The patient's tube on the patient's right side was identified. The tube was then tented up using a grasper. The LigaSure was used to transect and coagulate the mesosalpinx from the fimbriated end to the insertion at the uterus, the tube was amputated and removed in its entirety. Excellent hemostasis was noted. This was performed on the contralateral side as well. The lateral ports were then moved under direct visualization with excellent hemostasis. The abdomen was desufflated. All instruments were removed from the patient's abdomen. The fascia was closed using the #0 Vicryl on GI needle. The skin was closed using 4- 0 Vicryl subcuticularly. All instruments were removed from the patient's vagina as well. The patient was taken out of the dorsal lithotomy position and placed in the supine position and taken to recovery in stable condition. Sponge, lap and needle counts were correct x2. ??? [facility] History general Narrative - Reported Note Date & Type Note Facility History general Narrative - Reported Type Medical History History of [place] Medical History migraine headache Medical History bipolar Medical History chronic depression Medical History anxiety Medical History fx bilateral ankles and elbow Surgical History tubal ligation 2021 Hospitalization History No Hospitalization histo ry information [facility] Other Summary Purpose Family History No Family History Records FoundNo Family History Records Found Advance Directives No Advanced Directives Records FoundNo Advanced Directives Records Found Additional Source Comments INFORMATION SOURCE (unrecogn ized section and content) DATE CREATED AUTHOR 10/30/2022 [facility] DATE CREATED AUTHOR AUTHOR'S ORGANIZ ATION 10/22/2023 [facility] REASON FOR VISIT (unrecogniz ed section and content) COUGH, CONGESTION, HEADACHEC ONGESTION COUGH FOR RECORDS PERTAINING TO PATIENTS WHO ARE OR HAVE BEEN ENROLLED IN A CHEMICAL DEPENDENCY/SUBSTANCEABUSE PROGRAM, SOME INFORMATION MAY BE OMITTED. This clinical summary was aggregated from multiple sources. Caution should be exercised in using it in the provision of clinical care. This summary normalizes information from multiple sources, and as a consequence, information in this document may materially change the coding, format and clinical context of patient data. In addition, data may be omitted in some cases. CLINICAL DECISIONS SHOULD BE BASED ON THE PRIMARY CLINICAL RECORDS. [facility] provides no warranty or guarantee of the accuracy or completeness of information in this document.
== END 2023-10-26 09:55 | disposition home or self-care (01) ==
LOC: RAD 09:54
PROVIDERS: Visit Provider Podiatrist Foot & Ankle Surgery
DX: S82.391D Other fracture of lower end of right tibia, subsequent encounter for closed fracture with routine healing (principal)
CPT/HCPCS: 73610

== ENCOUNTER 2024-01-02 14:38 | Outpatient (OUT) | payer OTHER, SELFPAY ==
--- NOTE | 2024-01-02 | XR_ITS ---
The [address] [address] Patient Name: CHRISTOPHER RUDOLPH MRN: [id number] date: 1990 Sex: F Assigned Patient Location: Current Patient Location: Accession/Order Number: [id number] Exam Date: 01/02/2024 14:39 Report Date: 01/03/2024 07:23 At the request of: NORTH RG Procedure: XR ankle RT min 3V PROCEDURE: XR ankle RT min 3V HISTORY: RIGHT ANKLE PAIN COMPARISON: XR ankle right 10/26/2023 FINDINGS: BONES:Prior surgical repair of posterior malleolus fracture via dorsal plate and screws; no hardware fracture loosening. No visible bone fracture, dislocation, or lesion. Uniform spacing of the joint space. Stable mild osteopenia. SOFT TISSUES:No visible soft tissue swelling. EFFUSION:None visible. OTHER: Negative. XR/XR ankle RT min 3V IMPRESSION: 1. Stable surgical changes without evidence of hardware failure or change in alignment. Electronically authenticated by: JOSE GERBER Date: 01/03/2024 07:23
== END 2024-01-02 14:39 | disposition home or self-care (01) ==
LOC: EC 14:38
PROVIDERS: Visit Provider Podiatrist Foot & Ankle Surgery
DX: M25.571 Pain in right ankle and joints of right foot (principal); Z98.890 Other specified postprocedural states
CPT/HCPCS: 73610

== ENCOUNTER 2025-08-03 08:57 | Outpatient (OUT) | payer OTHER, SELFPAY ==
--- NOTE | 2025-08-03 09:00 | MR_ITS ---
[id number] Patient Name: CHRISTOPHER RUDOLPH MRN: [id number] date: 1990 Sex: F Assigned Patient Location: MRI Current Patient Location: MRI Accession/Order Number: [id number] Exam Date: 08/03/2025 09:05 Report Date: 08/03/2025 16:30 At the request of: JUAQUIN CAMPUZANO DO Procedure: MR head/brain wo con EXAMINATION: MRI OF THE BRAIN WITHOUT CONTRAST CLINICAL HISTORY: Intractable Migraine With Aura COMPARISON: None TECHNIQUE: Multiecho, multiplanar imaging of the brain was performed without contrast FINDINGS: No restricted diffusion. Ventricles and sulci normal size and configuration for patient's age. Brain parenchyma unremarkable in signal intensity. Intracranial arterial vascular flow was preserved. No abnormal GRE signal. Minor ethmoid sinus mucoperiosteal thickening. MR/MR head/brain wo con IMPRESSION: Essentially unremarkable MRI brain performed without contrast. Impression dictated by: Rj Sol M.D. 08/03/2025 4:30 PM Dictation Location: [address] [address] Electronically authenticated by: [id number] Y Date: 08/03/2025 16:30
--- OUTSIDE RECORDS SUMMARY | 2025-08-03 09:02 | XMS_ITS | CCD ---
Author Organization [facility]iniSyok Care Team Providers Care Strategies Analyst Name Role Phone ADITYA, DR OCHOA Admitting Unavailable ADITYA, DR OCHOA Attending Unavailable FAWYUMIKO, [facility] Primary Care Unavailable ADITYA, DR OCHOA Consulting Unavailable ADITYA, DR OCHOA Admitting Unavailable ADITYA, DR OCHOA Attending Unavailable FAWCAD, [facility] Primary Care Unavailable LA LAWRENCE Consulting Unavailable ADITYA, DR OCHOA Admitting Unavailable ADITYA, DR OCHOA Attending Unavailable [facility] Primary Care Unavailable ADITYA, DR OCHOA Consulting Unavailable LISA VALLES Consulting Unavailable DEE, IBIS QUEZADA Consulting Unava ilable ADITYA, DR OCHOA Admitting Unavailable ADIYTA, DR OCHOA Attending Unavailable AYAN, BETTYE R Primary Care Unavailable ADITYA, DR OCHOA Admitting Unavailable ADITYA, DR OCHOA Attending Unavailable AYAN, BETTYE R Primary Care Unavailable ADITYA, DR OCHOA Consulting Unavailable ADITYA, DR OCHOA Admitting Unavailable ADITYA, DR OCHOA Attending Unavailable ROLY, [facility] Primary Care Unavailable ADITYA, DR OCHOA Consulting Unavailable ADITYA, DR OCHOA Admitting Unavailable ADITYA, DR OCHOA Attending Unavailable FAWCAD, [facility] Primary Care Unavailable DORRIS, DR SUSANA Xie Consulting Unavailable ADITYA, DR OCHAO Consulting Unavailable Gini Fernandez Unavailable NORTH RG Referring Unavailable ELIAS SHEFFIELD Primary Care Unavailable NORTH RG Referring Unavailable ELIAS SHEFFIELD Primary Care Unavailable NORTH RG Referring Unavailable ELIAS SHEFFIELD Primary Care Unavailable Roly ROCK, Unavailable Jose C ROCK, Guevara Primary Care Provider Lucinda Valdez NP Unavailable [phone] SHAIKH DUNHAM Attending Unavailable SHAIKH DUNHAM Attending Unavailable SHAIKH DUNHAM Attending Unavailable LUCINDA VALDEZ Attending LUCINDA Rai Attending Shaikh Nagy MD Primary Care Provider Ida Baltazar DO Primary Care Provider [phone] Ida Baltazar DO Attending Provider [phone] Allergies Allergy Classification Reported Allergen(s) Allergy Type Date of Onset Reaction(s) Facility (4 sources) Penicillins; Translations: [PENICILLINS] Drug allergy (disorder) 2 Anaphylaxis [facility] Repository (11 sources) Amoxicillin Drug Allergy 4 anaphylaxis [facility] (3 sources) Penicillin V Drug Allergy 5 anaphylaxis [facility] (10 sources) Cephalosporins (Antibiotic); Translations: [CEPHALOSPORINS] Propensity to adverse reactions to drug (disorder) 0 Anaphylaxis [facility] (8 sources) Penicillins Drug Intolerance 0 Anaphylaxis [facility] Medications Current Medications Medication Drug Class(es) Dates Sig (Normalized) Sig (Original) [id number] 200 actuat albuterol 0.09 mg/actuat metered dose [...] Start: 12-20-2022 take 1 capsule by mo uth every eight hours Tessalon Perles 100 MG 1 capsule as needed Orally Three times a day for 10 day(s) Dec, Not-Taking doxycycline hyclate 100 mg oral capsule (1 source) Tetracycline-class Drug Start: 01-03-2023 take 1 capsule by mouth every twelve hours Doxycycline Hyclate 100 MG 1 capsule Orally Twice a day for 10 Dec, Active ondansetron 4 mg oral tablet (3 sources) Serotonin-3 Receptor Antagonist Start: 07-23-2025 take 1 tablet by mouth every six hours Ondansetron Hcl 4 mg tablet Active 4 MG PO Every 6 hours July 23, 2025 12:00am Complies with drug therapy Start: 07-18-2024 End: 02-23-2025 take 1 tablet by mouth every eight hours for nausea ondansetron ODT (Zofran-ODT) 4 MG disintegrating tablet Indications: Migraine with aura and without status migrainosus, not intractable (CMS/HCC) Take 1 tablet (4 mg) by mouth every 8 (eight) hours if needed for nausea or vomiting 20 tablet 11/25/2024 02/23/2025 Active predniSONE 20 mg oral tablet (3 sources) Start: 12-20-2022 take 1 tablet by mouth every twelve hours predniSONE 20 MG 1 tablet Orally bid for 5 day(s) Dec, Active SUMAtriptan 100 mg oral tablet (10 sources) Serotonin-1b and Serotonin-1d Receptor Agonist Start: 07-15-2025 take 2 tablets by mouth every twenty-four hours as needed Sumatriptan Succinate (Imitrex) 100 mg tablet Active 100 MG PO Every 2 hours as needed July 15, 2025 12:00am do not exceed 2 doses per 24 hrs Complies with drug therapy Start: 03-12-2024 End: 12-25-2024 take 1 tablet by mouth once SUMAtriptan (Imitrex) 100 MG tablet Indications: Migraine with aura and without status migrainosus, not intractable (CMS/HCC) Take 1 tablet (100 mg) by mouth 1 (one) time if needed for migraine 9 tablet 2 11/25/2024 12/25/2024 Active Completed/Discontinued Medications Medication Drug Class(es) Dates Sig (Normalized) Sig (Original) azithromycin 250 mg oral tablet (2 sources) Macrolide Antimicrobial Start: 12-20-2022 Azithromycin 250 MG 2 tablet on the first day, then 1 tablet daily for 4 days Orally Once a day for 5 day(s) Dec, Not-Taking 24 hr buPROPion hydrochloride 150 mg extended release oral tablet (1 source) Aminoketone Start: 12-11-2019 End: 07-23-2025 take 1 tablet by mouth once daily in the morning Bupropion Hcl 150 mg Tablet Extended Release 24 Hr Discontinued 150 MG PO Every morning 30 December 11, 2019 1:00am July 23, 2025 9:07am busPIRone hydrochloride 10 mg oral tablet (1 source) Start: 12-10-2019 End: 07-23-2025 take 1 tablet by mouth twice daily Buspirone 10 mg tablet Discontinued 10 MG PO Twice daily December 10, 2019 1:00am July 23, 2025 8:37am Norgestimate-Ethiny l Estradiol (1 source) Progestin, Estrogen Start: 12-10-2019 End: 07-23-2025 take 1 tablet by mouth once daily at bedtime Norgestimate-Ethi nyl Estradiol (Sprintec (28)) 0.25-35 mg-mcg tablet Discontinued 1 TAB PO Daily at bedtime December 10, 2019 1:00am July 23, 2025 8:37am phentermine hydrochloride 37.5 mg oral tablet (14 sources) Sympathomimetic Amine Anorectic Start: 07-21-2025 End: 07-23-2025 take 1 tablet by mouth once daily 30 minutes after breakfast Phentermine (Adipex-P) 37.5 mg tablet Discontinued 37.5 MG PO Daily July 21, 2025 12:00am July 23, 2025 8:37am must administer 30 minutes before or 1-2 hours after breakfast Start: 05-15-2024 End: 09-15-2024 take 1 tablet by mouth in the morning, then take 2 tablets by mouth before mealtime phentermine (Adipex-P) 37.5 MG tablet Indications: Overweight (BMI 25.0-29.9) Take 1 tablet (37.5 mg) by mouth in the morning. Take before meals. Do not start before August 16, 2024. 30 tablet 08/16/2024 Active triamcinolone acetonide 40 mg/ml injectable suspension (1 source) Corticosteroid Start: 01-03-2023 Kenalog-40 Dec, 40 mg vortioxetine 20 mg oral tablet (1 source) Start: 12-10-2019 End: 07-23-2025 take 1 tablet by mouth once daily Vortioxetine (Trintellix) 20 mg tablet Discontinued 20 MG PO Daily December 10, 2019 1:00am July 23, 2025 8:38am Problems Active Problems Problem Classification Problem Date Documented Da te Episodic/Chronic Anxiety disorders (8 sources) Generalized anxiety disorder; Translations: [Generalized anxiety disorder] Onset: 12-27-2019 03-12-2024 Chronic Chronic obstructive pulmonary disease and bronchiectasis (2 sources) Bronchitis, not specified as acute or chronic Episodic Contraceptive and procreative management (5 sources) Encounter for sterilization; Translations: [ENCOUNTER FOR STERILIZATION] Onset: 08-13-2022 Episodic Headache; including migraine (14 sources) Refractory migraine with aura; Translations: [Migraine with aura, intractable, with status migrainosus] Onset: 03-12-2024 03-12-2024 Chronic Comment on above: Problem List clean-u p per request of Phys. EHR Cmte Immunizations and screening for infectious disease (3 sources) Encounter for screening for human papillomavirus (HPV); Translations: [Needs influenza immunization] Onset: 06-08-2022 07-24-2024 Episodic Menstrual disorders (6 sources) Excessive and frequent menstruation with regular cycle; Translations: [Irregular menstruation, unspecified] Onset: 07-17-2022 Chronic Mood disorders (9 sources) Major depressive disorder; Translations: [Major depressive disorder, single episode, unspecified] Onset: 03-12-2024 03-12-2024 Chronic Comment on above: Problem List clean-u p per request of Phys. EHR Cmte Other female genital disorders (1 source) Other [...] Other Problems Problem Classification Problem Date Documented Da te Episodic/Chronic Other nutritional; endocrine; and metabolic disorders (13 sources) Body mass index 25-29 - overweight; Translations: [Overweight] Onset: 03-12-2024 07-16-2024 Episodic Other screening for suspected conditions (not mental disorders or infectious disease) (4 sources) Encounter for screening for malignant neoplasm of cervix; Translations: [ENC SCREENING MALIG NEOPLASM CERV] Onset: 06-06-2022 Episodic Results Test Name Value Interpretation Reference Range Facility Quick Strepon 12-20-2022 S. pyogenes Org specific cx Ql (Throat) Negative [facility] Other Quick Strep [facility] Other CBC AUTO DIFFon 08-18-2022 BASO # 0.0 103/ul Normal 0.0-0.1 [facility] Comment on above: Performed By: #### C BC #### [facility] [address] [place] [address] Dr. Mary Alice Maxwell Basophils/100 WBC (Bld) 0.3 % Normal 0.2-2.0 [facility] Comment on above: Performed By: #### C BC #### [facility] [address] [place] [address] Dr. Mary Alice Maxwell EO # 0.1 103/ul Normal 0.0-0.7 [facility] Comment on above: Performed By: #### C BC #### [facility] [address] [place] [address] Dr. Mary Alice Maxwell Eosinophils/100 WBC (Bld) 1.3 % Normal 0.9-7.0 [facility] Comment on above: Performed By: #### C BC #### [facility] [address] [place] [address] Dr. Mary Alice Maxwell Erythrocyte distribution width (RBC) [Ratio] 12.9 % Normal 11.0-15.0 [facility] Comment on above: Performed By: #### C BC #### [facility] [address] [place] [address] Dr. Mary Alice Maxwell Hematocrit (Bld) [Volume fraction] 41.6 % Normal 36.0-48.0 [facility] Comment on above: Performed By: #### C BC #### [facility] [address] [place] [address] Dr. Mary Alice Maxwell Hemoglobin (Bld) [Mass/Vol] 13.8 g/dL Normal 12.0-16.0 [facility] Comment on above: Performed By: #### C BC #### [facility] [address] [place] [address] Dr. Mary Alice Maxwell IG # 0.01 10e3/ul Normal 0.00-0.03 [facility] Comment on above: Performed By: #### C BC #### [facility] [address] [place] [address] Dr. Mary Alice Maxwell IG % 0.3 % Normal 0.0-0.5 [facility] Comment on above: Performed By: #### C BC #### [facility] [address] [place] [address] Dr. Mary Alice Maxwell LYMPH # 1.2 103/ul Normal 1.2-3.8 [facility] Comment on above: Performed By: #### C BC #### [facility] [address] [place] [address] Dr. Mary Alice Maxwell Lymphocytes/100 WBC (Bld) 29.3 % Normal 20.5-60.0 [facility] Comment on above: Performed By: #### C BC #### [facility] [address] [place] [address] Dr. Mary Alice Maxwell MANUAL DIFF REQ NO Normal [facility] Comment on above: Performed By: #### C BC #### [facility] [address] [place] [address] Dr. Mary Alice Maxwell MCH (RBC) [Entitic mass] 28.5 pg Normal 26.7-34.0 [facility] Comment on above: Performed By: #### C BC #### [facility] [address] [place] [address] Dr. Mary Alice Maxwell MCHC (RBC) [Mass/Vol] 33.2 g/dL Normal 29.9-35.2 [facility] Comment on above: Performed By: #### C BC #### [facility] [address] [place] [address] Dr. Mary Alice Maxwell MCV (RBC) [Entitic vol] 85.8 fL Normal 81.0-99.0 [facility] Comment on above: Performed By: #### C BC #### [facility] [address] [place] [address] Dr. Mary Alice Maxwell MONO # 0.3 103/ul Normal 0.3-0.8 [facility] Comment on above: Performed By: #### C BC #### [facility] [address] [place] [address] Dr. Mary Alice Maxwell Monocytes/100 WBC (Bld) 8.0 % Normal 1.7-12.0 [facility] Comment on above: Performed By: #### C BC #### [facility] [address] [place] [address] Dr. Mary Alice Maxwell NEUT # 2.4 103/ul Normal 1.4-6.5 [facility] Comment on above: Performed By: #### C BC #### [facility] [address] [place] [address] Dr. Mary Alice Maxwell Neutrophils/100 WBC (Bld) 60.8 % Normal 43.0-75.0 [facility] Comment on above: Performed By: #### C BC #### [facility] [address] [place] [address] Dr. Mary Alice Maxwell Platelet mean volume (Bld) [Entitic vol] 9.0 fL Critically low 9.5-13.5 [facility] Comment on above: Performed By: #### C BC #### [facility] [address] [place] [address] Dr. Mary Alice Maxwell PLT 227 103/ul Normal 150-450 [facility] Comment on above: Performed By: #### C BC #### [facility] [address] [place] [address] Dr. Mary Alice Maxwell RBC 4.85 106/ul Normal 4.20-5.40 [facility] Comment on above: Performed By: #### C BC #### [facility] [address] [place] [address] Dr. Mary Alice Maxwell WBC 4.0 103/ul Normal 4.0-11.0 [facility] Comment on above: Performed By: #### C BC #### [facility] [address] [place] [address] Dr. Mary Alice Maxwell PREG HCG QUALon 08-18-2022 , QUAL Negative Normal NEGATIVE [facility] Comment on above: Performed By: #### P REG #### [facility] [address] [place] [address] Dr. Mary Alice Maxwell Covid-19 PCR (CVDTB)on SARS-CoV-2 (COVID-19) RNA MARY+probe Ql (Unsp spec) Not detected Normal NOT DETECTED [facility] Comment on above: Result Comment: This test is not yet approved or cleared by the [place] FDA. When there are no FDA-approved or cleared tests available, and other criteria are met, FDA can make tests available under an emergency access mechanism called an Emergency Use Authorization (EUA). The EUA for this test is supported by the Quality Assurance Tester of Health and Human Service's (HHS's) declaration [...] consistent with SARS-CoV-2. Performed By: #### C VDTBH #### [facility] [address] [place] [address] Dr. Mary Alice Maxwell US PELVIS AND [...] SUSANA HILL Date: 2022-07-17 16:10 Normal [facility] CBC AUTO DIFFon 07-15-2022 BASO # 0.0 103/ul Normal 0.0-0.1 [facility] Comment on above: Performed By: #### C BC ####[facility] [address] [place], [place] [address]Dr. Mary Alice Maxwell Basophils/100 WBC (Bld) 0.2 % Normal 0.2-2.0 [facility] Comment on above: Performed By: #### C BC ####[facility] [address] [place], [place] [address]Dr. Mary Alice Maxwell EO # 0.0 103/ul Normal 0.0-0.7 [facility] Comment on above: Performed By: #### C BC ####[facility] [address] [place], [place] [address]Dr. Mary Alice Maxwell Eosinophils/100 WBC (Bld) 0.4 % Critically low 0.9-7.0 [facility] Comment on above: Performed By: #### C BC ####[facility] [address] [place], [place] [address]Dr. Mary Alice Maxwell Erythrocyte distribution width (RBC) [Ratio] 12.5 % Normal 11.0-15.0 [facility] Comment on above: Performed By: #### C BC ####[facility] [address] [place], [place] [address]Dr. Mary Alice Maxwell Hematocrit (Bld) [Volume fraction] 38.0 % Normal 36.0-48.0 [facility] Comment on above: Performed By: #### C BC ####[facility] [address] [place] [id number]. Mary Alice Maxwell Hemoglobin (Bld) [Mass/Vol] 12.5 g/dL Normal 12.0-16.0 [facility] Comment on above: Performed By: #### C BC ####[facility] [address] [place] [id number]. Mary Alice Maxwell IG # 0.01 10e3/ul Normal 0.00-0.03 [facility] Comment on above: Performed By: #### C BC ####[facility] [address] [place] [id number]. Mary Alice Maxwell IG % 0.2 % Normal 0.0-0.5 [facility] Comment on above: Performed By: #### C BC ####[facility] [address] [place] [address]Dr. Mary Alice Hans LYMPH # 1.2 103/ul Normal 1.2-3.8 [facility] Comment on above: Performed By: #### C BC ####[facility] [address] [place] [id number]. Mary Alice Hans Lymphocytes/100 WBC (Bld) 23.9 % Normal 20.5-60.0 [facility] Comment on above: Performed By: #### C BC ####[facility] [address] [place] [id number]. Mary Alice Maxwell MANUAL DIFF REQ NO Normal [facility] Comment on above: Performed By: #### C BC ####[facility] [address] [place] [id number]. Mary Alice Maxwell MCH (RBC) [Entitic mass] 28.8 pg Normal 26.7-34.0 [facility] Comment on above: Performed By: #### C BC ####[facility] [address] [place] [id number]. Mary Alice Maxwell MCHC (RBC) [Mass/Vol] 32.9 g/dL Normal 29.9-35.2 [facility] Comment on above: Performed By: #### C BC ####[facility] [address] [place] [id number]. Mary Alice Maxwell MCV (RBC) [Entitic vol] 87.6 fL Normal 81.0-99.0 [facility] Comment on above: Performed By: #### C BC ####[facility] [address] [place] [id number]. Mary Alice Maxwell MONO # 0.3 103/ul Normal 0.3-0.8 [facility] Comment on above: Performed By: #### C BC ####[facility] [address] [place] [id number]. Mary Alice Maxwell Monocytes/100 WBC (Bld) 7.0 % Normal 1.7-12.0 [facility] Comment on above: Performed By: #### C BC ####[facility] [address] [place], [place] [address]Dr. Mary Alice Maxwell NEUT # 3.3 103/ul Normal 1.4-6.5 [facility] Comment on above: Performed By: #### C BC ####[facility] [address] [place], [place] [id number]. Mary Alice Maxwell Neutrophils/100 WBC (Bld) 68.3 % Normal 43.0-75.0 [facility] Comment on above: Performed By: #### C BC ####[facility] [address] [place], [place] [address]Dr. Mary Alice Maxwell Platelet mean volume (Bld) [Entitic vol] 9.5 fL Normal 9.5-13.5 [facility] Comment on above: Performed By: #### C BC ####[facility] [address] [place], [place] [id number]. Mary Alice Maxwell PLT 227 103/ul Normal 150-450 [facility] Comment on above: Performed By: #### C BC ####[facility] [address] [place] [id number]. Mary Alice Hans RBC 4.34 106/ul Normal 4.20-5.40 [facility] Comment on above: Performed By: #### C BC ####[facility] [address] [place] [id number]. Mary Alice Maxwell WBC 4.9 103/ul Normal 4.0-11.0 [facility] Comment on above: Performed By: #### C BC ####[facility] [address] [place], [place] [address]UqDr. Mary Alice Maxwell PREG QUANT HCGon 07-15-2022 HCG QUANT 1 mIU/mL Normal [facility] Comment on above: Performed By: #### T SH, PREGQNT #### [facility] [address] [place] [address] [address] Mary Alice Maxwell HCG RANGE SEE BELOW Normal [facility] Comment on above: Result Comment: 5-50 0.2-1 WEEK 50-500 1-2 WEEKS 100-5,000 2-3 WEEKS 500-10,000 3-4 WEEKS 1,000-50,000 4-5 WEEKS 10,000-100,000 5-6 WEEKS 15,000-200,000 6-8 WEEKS 10,000-100,000 2-3 MONTHS Performed By: #### T SH, PREGQNT #### [facility] [address] [place] [address] Dr. Mary Alice Maxwell PROTIMEon 07-15-2022 INR Coag (PPP) [Relative time] 0.94 {INR} Normal [facility] Comment on above: Performed By: #### P TT, PT #### [facility] [address] [place] [address] Dr. Mary Alice Maxwell INR GUIDELINES SEE BELOW Normal [facility] Comment on above: Result Comment: NICKOLAS RED INR: 2.0 - 3.0 CONDITIONS NOT LISTED BELOW 2.5 - 3.5 FOR PROSTHETIC HEART VALVE REPLACEMENT 2.5 - 3.5 RECURRENT THROMBOSIS Performed By: #### P TT, PT #### [facility] [address] [place] [address] Dr. Mary Alice Maxwell PT Coag (PPP) [Time] 10.2 s Normal 9.0-11.6 [facility] Comment on above: Performed By: #### P TT, PT #### [facility] [address] [place] [address] Dr. Mary Alice Maxwell PTTon 07-15-2022 aPTT Coag (Bld) [Time] 29.0 s Normal 22.3-36.2 [facility] Comment on above: Performed By: #### P TT, PT #### [facility] [address] [place] [address] Dr. Mary Alice Maxwell TSHon 07-15-2022 TSH 0.751 uIU/mL Normal 0.358-3.740 [facility] Comment on above: Performed By: #### T SH, PREGQNT #### [facility] [address] [place] [address] Dr. Mary Alice Maxwell PAP ACOG PANEL 2: 30 to 65on 06-12-2022 . . Normal [facility] Comment on above: Result Comment: Perf ormed at: WB Performed By: #### [id number] #### [facility] [address] [place] [address] Dr. Mary Alice Maxwell Age Gdln ACOG Testing - Normal [facility] Comment on above: Performed By: #### [id number] #### [facility] [address] [place] [address] Dr. Mary Alice Maxwell DIAGNOSIS: Comment Normal [facility] Comment on above: Result Comment: NEGA TIVE FOR INTRAEPITHELIAL LESION OR MALIGNANCY. Performed at: WB Performed By: #### [id number] #### [facility] [address] [place] [address] Dr. Mary Alice Maxwell HPV Aptima Negative Normal Negative [facility] Comment on above: Result Comment: This nucleic acid amplification test detects fourteen high-risk HPV types (16,18,31,33,35,39,45,51,52,56,58,59,66,68) without differentiation. Performed at: =G Performed By: #### [id number] #### [facility] [address] [place] [address] Dr. Mary Alice Maxwell Methodology: Comment Normal [facility] Comment on above: Result Comment: This liquid based ThinPrep(R) pap test was screened with the use of an image guided system. Performed at: WB Performed By: #### [id number] #### [facility] [address] [place] [address] Dr. Mary Alice Maxwell Note: Comment Normal [facility] Comment on above: Result Comment: The Pap smear is a screening test designed to aid in the detection of premalignant and malignant conditions of the uterine cervix. It is not a diagnostic procedure and should not be used as the sole means of detecting cervical cancer. Both false-positive and false-negative reports do occur. . Performed at: WB Performed By: #### [id number] #### [facility] [address] [place] [address] Dr. Mary Alice Maxwell Performed by: Comment Normal [facility] Comment on above: Result Comment: Valerio Washington Switchgear Repairer (ASCP) Performed at: WB Performed By: #### [id number] #### [facility] [address] [place] [address] Dr. Mary Alice Maxwell Specimen adequacy: Comment Normal [facility] Comment on above: Result Comment: Sati sfactory for evaluation. Endocervical and/or squamous metaplastic cells (endocervical component) are present. Performed at: WB Performed By: #### [id number] #### [facility] [address] [place] [address] Dr. Mary Alice Maxwell Vital Signs Date Time Vital Sign Value Performing Clinician Facility 07-23-2025 08:30-0400 Body height 157.48 cm Ida Goivanny DO Work Phone: [facility] 07-23-2025 08:30-0400 Body mass index (BMI) [Ratio] 30.2 kg/m2 Ida Giovanny DO Work Phone: [facility] 07-23-2025 08:30-0400 Body weight 74.84 kg Ida Giovanny DO Work Phone: [facility] 07-23-2025 08:30-0400 Diastolic blood pressure 84 mm[Hg] Ida Giovanny DO Work Phone: [facility] 07-23-2025 08:30-0400 Heart rate 70 /min Ida Giovanny DO Work Phone: [facility] 07-23-2025 08:30-0400 Respiratory rate 16 /min Ida Giovanny DO Work Phone: [facility] 07-23-2025 08:30-0400 SaO2% (BldA) [Mass fraction] 97 % Ida Giovanny DO Work Phone: [facility] 07-23-2025 08:30-0400 Systolic blood pressure 124 mm[Hg] Ida Giovanny DO Work Phone: [facility] 07-24-2024 13:01-0400 Body height 157.5 cm Lucinda Valdez HONING MACHINE OPERATOR Work Phone: [facility] 07-24-2024 13:01-0400 Body mass index (BMI) [Ratio] 27.16 kg/m2 Lucinda Valdez HONING MACHINE OPERATOR Work Phone: [facility] 07-24-2024 13:01-0400 Body temperature 96.4 [degF] Lucinda Valdez HONING MACHINE OPERATOR Work Phone: [facility] 07-24-2024 13:01-0400 Body weight 67.36 kg Lucinda Valdez HONING MACHINE OPERATOR Work Phone: [facility] 07-24-2024 13:01-0400 Heart rate 74 /min Lucinda Valdez HONING MACHINE OPERATOR Work Phone: [facility] 07-24-2024 13:01-0400 Respiratory rate 16 /min Lucinda Valdez HONING MACHINE OPERATOR Work Phone: [facility] 07-24-2024 13:01-0400 SaO2% (BldA) [Mass fraction] 98 % Lucinda Valdez HONING MACHINE OPERATOR Work Phone: [facility] 06-18-2024 08:36-0400 Body height 157.5 cm Lucinda Valdez HONING MACHINE OPERATOR Work Phone: [facility] 06-18-2024 08:36-0400 Body mass index (BMI) [Ratio] 27.44 kg/m2 Lucinda Valdez HONING MACHINE OPERATOR Work Phone: [facility] 06-18-2024 08:36-0400 Body temperature 98.4 [degF] Lucinda Valdez HONING MACHINE OPERATOR Work Phone: [facility] 06-18-2024 08:36-0400 Body weight 68.04 kg Lucinda Valdez HONING MACHINE OPERATOR Work Phone: [facility] 06-18-2024 08:36-0400 Diastolic blood pressure 78 mm[Hg] Lucinda Valdez HONING MACHINE OPERATOR Work Phone: [facility] 06-18-2024 08:36-0400 Heart rate 89 /min Lucinda Valdez HONING MACHINE OPERATOR Work Phone: [facility] Comment on above: 99% O2 06-18-2024 08:36-0400 Systolic blood pressure 110 mm[Hg] Lucinda Valdez HONING MACHINE OPERATOR Work Phone: [facility] 01-03-2023 10:25-0400 Body height 157.48 cm Gini Fernandez Other [employer] Other 01-03-2023 10:25-0400 Body mass index (BMI) [Ratio] 30.21 kg/m2 Gini Fernandez Other [employer] Other 01-03-2023 10:25-0400 Body temperature 98.2 [degF] Gini Fernandez Other [employer] Other 01-03-2023 10:25-0400 Body weight 74.93 kg Gini Fernandez Other [employer] Other 01-03-2023 10:25-0400 Respiratory rate 18 /min Gini Fernandez Other [employer] Other 01-03-2023 10:25-0400 SaO2% (BldA) [Mass fraction] 99 % Gini Fernandez Other [employer] Other 12-20-2022 09:00-0500 Body height 157.48 cm Gini Fernandez Other [employer] Other 12-20-2022 09:00-0500 Body mass index (BMI) [Ratio] 27.43 kg/m2 Gini Fernandez Other [employer] Other 12-20-2022 09:00-0500 Body temperature 97.2 [degF] Gini Fernandez Other [employer] Other 12-20-2022 09:00-0500 Body weight 68.04 kg Gini Fernandez Other [employer] Other 12-20-2022 09:00-0500 Respiratory rate 18 /min Gini Fernandez Other [employer] Other 12-20-2022 09:00-0500 SaO2% (BldA) [Mass fraction] 98 % Gini Fernandez Other [employer] Other Encounters Encounter Date Encounter Type Care Provider Facility Start: 07-23-2025 End: 07-23-2025 ambulatory Ida Baltazar DO Work Phone: [facility] Work Phone: Start: 07-23-2025 End: 07-23-2025 Patient encounter procedure Ida Baltazar DO -[facility] Work Phone: Start: 11-25-2024 End: 11-25-2024 Refill Wilda Benjy PADGETT [facility] Comment on above: Migraine with aura a nd without status migrainosus, not intractable (CMS/HCC) Start: 07-24-2024 End: 07-24-2024 Bamboo flowsheet Lucinda Valdez HONING MACHINE OPERATOR Work Phone: [facility] Start: 07-24-2024 End: 07-24-2024 Bamboo flowsheet Lucinda Valdez HONING MACHINE OPERATOR Work Phone: [facility] Start: 07-24-2024 End: 07-24-2024 ambulatory LUCINDA VALDEZ Not Available Start: 07-24-2024 End: 07-24-2024 Office outpatient visit 10 minutes Lucinda Valdez HONING MACHINE OPERATOR Work Phone: [facility] Comment on above: Need for influenza v accination; Overweight (BMI 25.0-29.9) Start: 07-16-2024 End: 07-16-2024 Refill Lucinda Valdez HONING MACHINE OPERATOR Work Phone: [facility] Comment on above: Overweight (BMI 25.0 -29.9) Start: 06-18-2024 End: 06-18-2024 Bamboo flowsheet Lucinda Valdez HONING MACHINE OPERATOR Work Phone: [facility] Start: 06-18-2024 End: 06-18-2024 Bamboo flowsheet Lucinda Valdez HONING MACHINE OPERATOR Work Phone: [facility] Start: 06-18-2024 End: 06-18-2024 ambulatory LUCINDA VALDEZ Not Available Start: 06-18-2024 End: 06-18-2024 Office outpatient visit 15 minutes Lucinda Valdez HONING MACHINE OPERATOR Work Phone: [facility] Comment on above: Overweight (BMI 25.0 -29.9) (Primary Dx) Start: 05-15-2024 End: 05-15-2024 ambulatory WALKER FAWWAD Not Available Start: 04-10-2024 End: 04-10-2024 ambulatory WALKER FAWWAD Not Available Start: 03-12-2024 End: 03-12-2024 ambulatory WALKER FAWWAD Not Available Start: 11-15-2023 End: 12-14-2023 ambulatory [facility] Start: 10-16-2023 End: 11-15-2023 ambulatory [facility] Start: 09-24-2023 End: 10-15-2023 ambulatory [facility] Start: 01-03-2023 End: 01-03-2023 ambulatory Gini Rebecca Other [employer] Other Start: 01-03-2023 Office outpatient vi sit 15 minutes Gini Rebecca [facility] Start: 12-20-2022 End: 12-20-2022 ambulatory Gini Rebecca Other [employer] Other Start: 12-20-2022 Office outpatient vi sit 15 minutes Gini Rebecca [facility] Start: 08-18-2022 Encounter for preprocedural laboratory examination DR GABRIELA PHILLIPS [facility] Start: 08-18-2022 End: 08-18-[address] GABRIELA PHILLIPS Facility:[facility] Start: 08-15-2022 End: 08-16-[address] GABRIELA PHILLIPS Facility:[facility] Start: 08-15-2022 End: 08-16-2022 Encounter for preprocedural laboratory examination DR GABRIELA PHILLIPS Facility:[facility] Start: 08-13-2022 Encounter for other preprocedural examination DR GABRIELA PHILLIPS [facility] Start: 08-09-2022 End: 08-10-[address] GABRIELA PHILLIPS Facility:[facility] Start: 08-09-2022 End: 08-10-2022 Encounter for other preprocedural examination DR GABRIELA PHILLIPS Facility:[facility] Start: 07-17-2022 End: 07-18-[address] GABRIELA PHILLIPS Facility:[facility] Start: 07-15-2022 End: 07-16-[address] GABRIELA PHILLIPS Facility:[facility] Start: 06-07-[address] GABRIELA PHILLIPS Facility :[facility] Start: 06-06-2022 End: 06-06-[address] GABRIELA PHILLIPS Facility:[facility] Plan of Treatment Date Care Activity Detail Author Start: 01-13-2027 Screening for malign ant neoplasm of cervix [facility] Start: 08-20-2024 End: 08-20-2024 Patient encounter procedure 08/20/2024 4:00 PM EST Office Visit [facility] [address] [place] [address] Lucinda Valdez, ANGELO [address] [place] [address] [facility] Start: 07-24-2024 End: 07-24-2024 Patient encounter procedure 07/24/2024 1:00 PM EDT Office Visit [facility] [address] [place] [address] Lucinda Valdez, HONING MACHINE OPERATOR [address] [place] [address] [facility] Start: 07-17-2024 End: 07-17-2024 Patient encounter procedure 07/17/2024 8:30 AM EDT Office Visit [facility] [address] [place] [address] Lucinda Valdez, HONING MACHINE OPERATOR [address] [place] [address] [facility] Start: 06-15-2024 Influenza vaccination Influenza Vacc ine (#1) [facility] Start: 2012 Screening for malign ant neoplasm of cervix Pap Smear [facility] MR Brain WO contrast [facility] Immunizations Immunization Date Immunization Notes Care Provider Edna gregg 07-24-2024 Influenza, Madin Kirill by Canine Kidney, subunit, trivalent, injectable, contains preservative Lucinda Valdez HONING MACHINE OPERATOR Work Phone: [facility] 09-02-2018 Influenza, injectabl e, Madin [place] Canine Kidney, preservative free, quadrivalent Lucinda Valdez HONING MACHINE OPERATOR Work Phone: [facility] 09-02-2018 influenza virus vaccine, unspecified formulation Lucinda Valdez HONING MACHINE OPERATOR Work Phone: [facility] 08-28-2017 Influenza, injectabl e, Madin [place] Canine Kidney, preservative free, quadrivalent Lucinda Valdez HONING MACHINE OPERATOR Work Phone: [facility] 2014 influenza, seasonal, injectable, preservative free Gini Rebecca Other [facility] 2014 tetanus toxoid, reduced diphtheria toxoid, and acellular pertussis vaccine, adsorbed Gini Rebecca Other [facility] 11-18-2012 human papilloma viru s vaccine, quadrivalent Gini Rebecca Other [facility] Payers Date Payer Category Payer Private Health Insurance [employer] [id number] 2022 Unknown [employer] [id number] 2022-Present [address] [place] [address] [id number] 1991 Unknown [id number] [id number]. 593 1991 Unknown [id number] 2.16.840.1.329022.3.579.2. 593 1991 Unknown [id number] 2.16.840.1.637080.3.579.2. 593 1991 Unknown [id number] 2.16.840.1.040595.3.579.2. 593 1991 Unknown [id number] 2.16.840.1.061553.3.579.2. 593 1991 Unknown [id number] 2.16.840.1.043539.3.579.2. 593 1991 Unknown [id number] 2.16.840.1.952035.3.579.2. 593 1991 Unknown [id number] 2.16.840.1.501682.3.579.2. 1286 1991 Unknown [id number] 2.16.840.1.127296.3.579.2. 1286 1991 Unknown [id number] 2.16.840.1.219344.3.579.2. 1286 1991 Unknown [id number] 2.16.840.1.719975.3.579.2. 1259 1991 Unknown [id number] 2.16.840.1.224528.3.579.2. 1259 1991 Unknown [id number] 2.16.840.1.788117.3.579.2. 1259 1991 Unknown [id number] 2.16.840.1.714231.3.579.2. 1259 1991 Unknown [id number] 2.16.840.1.118461.3.579.2. 1259 1959 [employer] ( [employer] others) [id number] 1959 Self-pay [id number] 1959 Unknown [id number] [employer] ( [employer] others) [id number] [id number] Unknown [facility] [id number] Unknown [employer] [id number] Social History Date Type Detail Facility Start: 06-18-2024 End: 07-24-2024 Sex Assigned At [employer] Other Start: 03-12-2024 End: 07-23-2025 Tobacco smoking status [facility] Ex-smoker [facility] History of tobacco use Current smoker [facility] History of tobacco use Cigarette Smoker [facility] History of tobacco use Passive smoker [facility] Start: 03-12-2024 Tobacco use and exposure Smokeless tobacco non-user [facility] Start: 06-18-2024 End: 07-24-2024 Alcoholic beverage intake Current drinker of alcohol (finding) [facility] Start: 06-18-2024 End: 07-24-2024 History of Social function [facility] Start: 03-12-2024 Alcohol Comment SOCIALLY [facility] Start: 1990 Sex assigned at Not on file [facility] How often do you nee d to have someone help you when you read instructions, pamphlets, or other written material from your doctor or pharmacy [SILS] Never [facility] Do you belong to any clubs or organizations such as gnosticist groups, unions, fraternal or athletic groups, or school groups? Yes [facility] Are you now , , , , never or living with a partner? [facility] How often to you hav e a drink containing alcohol? Monthly or less [facility] How many standard dr inks containing alcohol do you have on a typical day? 1 or 2 [facility] How often do you hav e 6 or more drinks on 1 occasion? Never [facility] How hard is it for y ou to pay for the very basics like food, housing, medical care, and heating Somewhat hard [facility] Do you feel stress - tense, restless, nervous, or anxious, or unable to sleep at night because your mind is troubled all the time - these days [OSQ] To some extent [facility] (I/We) worried [facility] er (my/our) food would run out before (I/we) got money to buy more. Never true [facility] In the past 12 month s, was there a time when you were not able to pay the mortgage or rent on time? No [facility] Sex Female (finding) [facility] Start: 1990 Sex Assigned At Female [facility] Clinical Notes 08-18-2022 to 11-25-2024 Telephone Encounter - Wilda Burleson MA - 11/25/2024 8:59 AM ESTTelephone Encounter - Wilda Burleson MA - 11/25/2024 8:59 AM July Valdez NP - 07/24/2024 1:29 PM EDTPatient Instructions Note Date & Type Note Facility 11-25-2024 Telephone encount er Note HARLEEN:07/24/2024 [facility] 11-25-2024 Miscellaneous Notes Formattin g of this note might be different from the original. HARLEEN:07/24/2024 documented in this encounter [facility] 07-24-2024 History of Presen t illness Narrative Associated Problem(s): Overweight (BMI 25.0-29.9) Pt meets qualifications of OAC 4731-08-18 for weight loss. BMI>30 or >27 with comorbid conditions. Blood pressure WNL. Notify office with any symptoms of chest pain, dyspnea, heart palpitations, or any anxiety symptoms. F/U in 4 weeks to document weight loss. Increase physical activity as tolerated, and lower caloric intake to 1600 calories daily if no contraindications Has lost 20 pounds since starting. Denies any adverse effects. Continue Adipex Images from the original note were not included. Subjective Patient ID: Michela Rudolph is a 33 y.o. female who presents for No chief complaint on file.. HPI Month #4 on Adipex Starting Weight: 170 Weight Today: 148 Total Weight Loss: 22 pounds 5% is = Goal Weight: 135 Diet: Lots of fruits and vegetables; chicken; eggs Water: at least 1 gallon Exercise: 4 times per week; HIIT Sleep: Feels she is resting well. Feels weight has hit a plateau. Is a bit discouraged but wants to keep trying for another month. Review of Systems Constitutional: Negative for activity change, appetite change, chills, diaphoresis, fatigue, fever and unexpected weight change. HENT: Negative for congestion, ear pain, rhinorrhea, sinus pressure, sinus pain, sneezing, sore throat, trouble swallowing and voice change. Eyes: Negative for visual disturbance. Respiratory: Negative for cough, chest tightness, shortness of breath and wheezing. Cardiovascular: Negative for chest pain, palpitations and leg swelling. Gastrointestinal: Negative for abdominal distention, abdominal pain, blood in stool, constipation, diarrhea and vomiting. Genitourinary: Negative for decreased urine volume, dysuria, flank pain, frequency, hematuria and urgency. Musculoskeletal: Negative for arthralgias, gait problem, joint swelling and myalgias. Skin: Negative for rash. Neurological: Negative for dizziness, tremors, syncope, weakness, light-headedness and headaches. Psychiatric/Behavioral: Negative for decreased concentration and suicidal ideas. The patient is not nervous/anxious. Hematological: Does not bruise/bleed easily. Endocrine: Negative for cold intolerance, heat intolerance, polydipsia, polyphagia and polyuria. Objective Physical Exam Vitals reviewed. Constitutional: Appearance: Normal appearance. HENT: Head: Normocephalic and atraumatic. Right Ear: Tympanic membrane normal. Left Ear: Tympanic membrane normal. Nose: Nose normal. Mouth/Throat: Mouth: Mucous membranes are moist. Pharynx: Oropharynx is clear. Eyes: Pupils: Pupils are equal, round, and reactive to light. Cardiovascular: Rate and Rhythm: Normal rate and regular rhythm. Pulses: Normal pulses. Heart sounds: Normal heart sounds. Pulmonary: Effort: Pulmonary effort is normal. Breath sounds: Normal breath sounds. Abdominal: General: Abdomen is flat. Bowel sounds are normal. Palpations: Abdomen is soft. Musculoskeletal: General: Normal range of motion. Cervical back: Normal range of motion. Skin: General: Skin is warm and dry. Capillary Refill: Capillary refill takes less than 2 seconds. Neurological: General: No focal deficit present. Mental Status: She is alert and oriented to person, place, and time. Psychiatric: Mood and Affect: Mood normal. Behavior: Behavior normal. Assessment/Plan Problem List Items Addressed This Visit Overweight (BMI 25.0-29.9) Pt meets qualifications of OAC 4731-08-18 for weight loss. BMI>30 or >27 with comorbid conditions. Blood pressure WNL. Notify office with any symptoms of chest pain, dyspnea, heart palpitations, or any anxiety symptoms. F/U in 4 weeks to document weight loss. Increase physical activity as tolerated, and lower caloric intake to 1600 calories daily if no contraindications Has lost 20 pounds since starting. Denies any adverse effects. Continue Adipex Other Visit Diagnoses Need for influenza vaccination Relevant Orders Flu vaccine, MDCK, Trivalent, (Completed) documented in this encounter [facility] 07-24-2024 Instructions Lucinda Valdez NP - 07/24/2024 1:00 PM EDT F/U in 4 weeks to document weight loss. Increase physical activity as tolerated, and lower caloric intake to 1600 calories daily if no contraindications. documented in this encounter [facility] 06-18-2024 History of Presen t illness Narrative Associated Problem(s): Overweight (BMI 25.0-29.9) Pt meets qualifications of OAC 4731-08-18 for weight loss. BMI>30 or >27 with comorbid conditions. Blood pressure WNL. Notify office with any symptoms of chest pain, dyspnea, heart palpitations, or any anxiety symptoms. F/U in 4 weeks to document weight loss. Increase physical activity as tolerated, and lower caloric intake to 1600 calories daily if no contraindications Has lost 20 pounds since starting. Denies any adverse effects. Continue Adipex Images from the original note were not included. Subjective Patient ID: Michela Rudolph is a 33 y.o. female who presents for No chief complaint on file.. HPI Weight: Month #3 on Adipex Starting Weight: 170 Weight Today: 150 Goal Weight: 135 Diet: Lots of fruits and vegetables; chicken; eggs Water: at least 1 gallon Exercise: 4 times per week; HIIT Sleep: Feels she is resting well. Review of Systems Constitutional: Negative for activity change, appetite change, chills, diaphoresis, fatigue, fever and unexpected weight change. HENT: Negative for congestion, ear pain, rhinorrhea, sinus pressure, sinus pain, sneezing, sore throat, trouble swallowing and voice change. Eyes: Negative for visual disturbance. Respiratory: Negative for cough, chest tightness, shortness of breath and wheezing. Cardiovascular: Negative for chest pain, palpitations and leg swelling. Gastrointestinal: Negative for abdominal distention, abdominal pain, blood in stool, constipation, diarrhea and vomiting. Genitourinary: Negative for decreased urine volume, dysuria, flank pain, frequency, hematuria and urgency. Musculoskeletal: Negative for arthralgias, gait problem, joint swelling and myalgias. Skin: Negative for rash. Neurological: Negative for dizziness, tremors, syncope, weakness, light-headedness and headaches. Psychiatric/Behavioral: Negative for decreased concentration and suicidal ideas. The patient is not nervous/anxious. Hematological: Does not bruise/bleed easily. Endocrine: Negative for cold intolerance, heat intolerance, polydipsia, polyphagia and polyuria. Objective Physical Exam Vitals reviewed. Constitutional: Appearance: Normal appearance. HENT: Head: Normocephalic and atraumatic. Right Ear: Tympanic membrane normal. Left Ear: Tympanic membrane normal. Nose: Nose normal. Mouth/Throat: Mouth: Mucous membranes are moist. Pharynx: Oropharynx is clear. Eyes: Pupils: Pupils are equal, round, and reactive to light. Cardiovascular: Rate and Rhythm: Normal rate and regular rhythm. Pulses: Normal pulses. Heart sounds: Normal heart sounds. Pulmonary: Effort: Pulmonary effort is normal. Breath sounds: Normal breath sounds. Abdominal: General: Abdomen is flat. Bowel sounds are normal. Palpations: Abdomen is soft. Musculoskeletal: General: Normal range of motion. Cervical back: Normal range of motion. Skin: General: Skin is warm and dry. Capillary Refill: Capillary refill takes less than 2 seconds. Neurological: General: No focal deficit present. Mental Status: She is alert and oriented to person, place, and time. Psychiatric: Mood and Affect: Mood normal. Behavior: Behavior normal. Assessment/Plan Problem List Items Addressed This Visit Overweight (BMI 25.0-29.9) - Primary Pt meets qualifications of [facility] 4731-08-18 for weight loss. BMI>30 or >27 with comorbid conditions. Blood pressure WNL. Notify office with any symptoms of chest pain, dyspnea, heart palpitations, or any anxiety symptoms. F/U in 4 weeks to document weight loss. Increase physical activity as tolerated, and lower caloric intake to 1600 calories daily if no contraindications Has lost 20 pounds since starting. Denies any adverse effects. Continue Adipex documented in this encounter [facility] 06-18-2024 Instructions Lucinda Valdez NP - 06/18/2024 8:30 AM EDT Keep up the great work!!! documented in this encounter [facility] 01-03-2023 Evaluation note Encounter Date Diagnosis Assessment [...] days. May return to work on Sunday. [employer] Other 03-08-2023 Evaluation note* Encounter Date Diagnosis Assessment Notes Treatment Notes Treatment Clinical Notes Dec, Sore throat (ICD-10 - J02.9) [...] no improvement in 2 to 3 days. [employer] Other 11-04-2022 NoteOPERATIVE NOTE OPERATION DATE: 08/18/2022 PROCEDURE: Karlie endometrial ablation and bilateral laparoscopic salpingectomy. PREOPERATIVE DIAGNOSIS: Menorrhagia, desires permanent sterilization, multiparity. POSTOPERATIVE DIAGNOSIS: Menorrhagia, desires permanent sterilization, multiparity, pelvic vascular congestion syndrome. ANESTHESIA: General. SURGEON: Gabriela Phillips D.O. STUDENT MINISTRY PASTOR: SEB Porras URINE OUTPUT: Yellow and clear. [...] lap and needle counts were correct x2. [facility] Overweight (BMI 25.0-29.9) Overweight documented in this encounter [facility]* Diagnosis Need for influenza vaccination Need for prophylactic vaccination and inoculation against influenza Overweight (BMI 25.0-29.9) Overweight documented in this encounter [facility]* Diagnosis Overweight (BMI 25.0-29.9)- Primary Overweight documented in this encounter [facility]* Diagnosis Class 1 obesity due to excess calories without serious comorbidity with body mass index (BMI) of 31.0 to 31.9 in adult- Primary Migraine with aura and without status migrainosus, not intractable (CMS/HCC) Generalized anxiety disorder with panic attacks (CMS/HCC) Overweight with body mass index (BMI) of 29 to 29.9 in adult- Primary Class 1 obesity due to excess calories without serious comorbidity with body mass index (BMI) of 31.0 to 31.9 in adult Overweight (BMI 25.0-29.9)- Primary Overweight Overweight (BMI 25.0-29.9)- Primary Overweight Need for influenza vaccination Need for prophylactic vaccination and inoculation against influenza Overweight (BMI 25.0-29.9) Overweight Migraine with aura and without status migrainosus, not intractable (CMS/HCC) documented in this encounter [facility] HealthcareEvaluation note* Diagnosis Onset Date Resolution Status Admit Date Intractable migraine with au ra with status migrainosus acute July 23, 2025 8:24am [facility] Work Phone: History general Narrative - Reported* Type Description Date Medical History History of Chicken Pox Medical History migraine headache Medical History bipolar Medical History chronic depression Medical History anxiety Medical History fx bilateral ankles and elbow Surgical History tubal ligation 2021 Hospitalization History No Hospitalization histo ry information [employer] Other Reason for referral (narrative)No reason for referral [facility] Work [facility]: Summary Purpose Family History Relationship Condition Age at Onset Recorded Date/T celi mother Bipolar affective disorder Unknown brother Asthma Unknown maternal grandmother Malignant neoplasm Unknown Advance Directives Advance Directive Response Recorded Date/ Time Advance Directives No June 10:57am Chief Complaint and Reason for Visit Chief Complaint Admit Date migraines July 23, 2025 8: 24am Reason for Visit Admit Date Intractable migraine with aura with stat us migrainosus July 23, 2025 8:24am Additional Source Comments INFORMATION SOURCE (unrecogn ized section and content) DATE CREATED AUTHOR 10/30/2022 [facility] DATE CREATED AUTHOR AUTHOR'S ORGANIZ ATION 12/16/2023 [facility] DATE CREATED AUTHOR AUTHOR'S ORGANIZ ATION 07/26/2024 [facility] EPIC REASON FOR VISIT (unrecogniz ed section and content) Reason Onset Date Comments Med Refill 07/16/2024 Reason Comments Weight Check Reason Comments Med Refill Adipex refill Reason Onset Date Comments Med Refill 11/25/2024 Care Teams (unrecognized sec tion and content) Strategies Analyst Relationship Specialty Start Date End Date Shaikh Dunham MD [address] [place] [phone] PCP - [facility] [employer] 11/17/21 10/14/99 Guevara Woodall MD [address] [place] [phone] PCP - General Family Medicine 07/16/24 Lucinda Valdez NP [address] [place] [phone] Nurse Practitioner Family Medicine 07/16/24 Strategies Analyst Relationship Specialty Start Date End Date Shaikh Dunham MD [address] [place] [phone] PCP - [facility] [employer] 11/17/21 10/14/99 Guevara Woodall MD [address] [place] [phone] PCP - General Family Medicine 07/16/24 Lucinda Valdez NP [address] [place] [phone] Nurse Practitioner Family Medicine 07/16/24 Strategies Analyst Relationship Specialty Start Date End Date Shaikh Dunham MD [address] [place] [address] PCP - [facility] [employer] 11/17/21 10/14/99 Guevara Woodall MD [address] [place] [address] PCP - General Family Medicine 07/16/24 Lucinda Valdez NP [address] [place] [phone] Nurse Practitioner Family Medicine 07/16/24 Strategies Analyst Relationship Specialty Start Date End Date Shaikh Dunham MD [address] [place] [phone] PCP - General Internal Medicine 03/12/24 Shaikh Dunham MD [address] [place] [phone] PCP - [facility] [employer] 11/17/21 10/14/99 Strategies Analyst Relationship Specialty Start Date End Date Shaikh Dunham MD [address] [place] [phone] PCP - General Internal Medicine 03/12/24 Shaikh Dunham MD [address] [place] [phone] PCP - [facility] [employer] 11/17/21 10/14/99 [employer]ies Analyst Relationship Specialty Start Date End Date Guevara Woodall MD [address] [place] [address] PCP - General Family Medicine 07/16/24 Lucinda Valdez NP [address] [place] [address] Nurse Practitioner Family Medicine 07/16/24 Team Status: Active Member Role Status Dates Ida Baltazar DO Primary Care Provider Active Team Status: Inactive Member Role Status Dates Ida Baltazar DO Primary Care Provider Active S tart: July 23, 2025 End: July 23, 2025 Ida Baltazar DO Attending Provider Active Star t: July 23, 2025 End: July 23, 2025 Goals (unrecognized section and content) Goals may be documented in a n alternate section FOR RECORDS PERTAINING TO PATIENTS WHO ARE [...] BE BASED ON THE PRIMARY CLINICAL RECORDS. [employer] provides no warranty or guarantee of the accuracy or completeness of information in this document.
== END 2025-08-03 08:58 | disposition home or self-care (01) ==
LOC: MRI 08:57
PROVIDERS: Visit Provider Family Medicine
DX: G43.111 Migraine with aura, intractable, with status migrainosus (principal)
CPT/HCPCS: 70551